=== PATIENT | male | born 1970 | race Caucasian/White ===

== ENCOUNTER 2018-02-18 23:30 | Emergency (ER) | payer OTHER ==
[~2018-02-18 23:30] MED LIST: ATV/1 PO; TEMA15CA4 PO; TRAM-10 PO
[2018-02-18 23:33] VITALS: TEMP 36.7; Ht 182.9 cm
[2018-02-18] MEDS ORDERED: SODIUM CHLORIDE 0.9% 1000ML 1,000 ML IV STA (23:48)
[2018-02-18] MEDS ORDERED: ONDANSETRON INJ 2 MG/ML 2 ML VIAL IV STA (23:48)
[2018-02-18] MEDS ORDERED: CITA20TA4 PO (23:54)
[2018-02-18] MEDS ORDERED: OMEP40CA41 PO (23:54)
--- NOTE | 2018-02-19 00:37 | EMERGENCY ROOM VISIT NOTE ---
History Report prepared by Mahnaz: Luis Carlos Irizarry Under the Supervision of: Dr. Maria Alejandra Douglas M.D. First contact with patient: 23:48 Chief Complaint: DIARRHEA Stated Complaint: DIARREHA History of Present Illness The patient is a 48 year old male who presents to the Emergency Room with complaints of persistent general diarrhea for two days. He reports nausea and vomiting. He has a history of cholecystectomy. He denies any other underlying medical problems. He denies any fever or bloody stools. He reports abdominal pain and general weakness. He reports loss of appetite. His last bowel movement was earlier today. He notes that he has been dry heaving for 12 hours. The patient has a history of depression and alcoholism. Mother states the patient has not had anything to drink in over 5 years however he admits he has been drinking beer, up to 6 cans a day, over the last "several weeks." Source of History: patient Onset: two days Position: other (general ) Quality: other (diarrhea) Timing: other (persistent) Associated Symptoms: + nausea, + vomiting, + abdominal pain, + weakness, No fevers Note: Notes dry heaving. Denies any bloody stools. Review of Systems See HPI for pertinent positives & negatives. A total of 10 systems reviewed and were otherwise negative. Past Medical & Surgical Medical Problems: (1) Acquired thrombocytopenia (2) Alcohol poisoning (3) Basal cell carcinoma of nose (4) Cholelithiasis without obstruction (5) closed head injury (6) History of adenomatous polyp of colon (7) Hypotension (8) Open reduction of fracture (9) Pelvic titanium plates (10) Portal hypertension (11) Recurrent falls (12) s/p femur fracture (13) Titanium femurs bilaterally Surgical Problems: (1) Hx of cholecystectomy Family History FH: cancer FH: heart disease Hypertension Stroke MOTHER GRANDMOTHER Social History Smoking Status: Never Smoker Alcohol Use: heavy, other Drug Use: none Marital Status: single Housing Status: lives with family Occupation Status: disabled Current/Historical Medications Scheduled Citalopram Hydrobromide (Citalopram Hydrobromide), 20 MG PO DAILY Omeprazole (Prilosec), 40 MG PO DAILY Scheduled PRN Lorazepam (Ativan), 1 MG PO TID PRN for Anxiety Temazepam (Restoril), 15 MG PO HS PRN for Sleep Tramadol (Ultram), 50-100 MG PO Q6H PRN for Pain Allergies Coded Allergies: Hydrocodone (Verified Allergy, Unknown, rash, 02/18/18) Sulfa Drugs (Verified Allergy, Unknown, swells up and hives, 02/18/18) Physical Exam Vital Signs Date Time Temp Pulse Resp B/P (MAP) Pulse Ox O2 Delivery O2 Flow Rate FiO2 02/19/18 03:04 102 21 96 02/19/18 03:02 133/85 02/19/18 02:34 114 15 97 02/19/18 02:31 135/77 02/19/18 02:04 106 12 98 Room Air 02/19/18 02:01 133/85 02/19/18 01:34 105 16 96 02/19/18 01:29 102 96 02/19/18 01:21 103 02/19/18 00:53 135/86 02/18/18 23:33 36.7 128 20 115/73 95 Room Air Physical Exam Vital signs reviewed. General: Chronically ill-appearing, thin, in no significant distress. Holding emesis bag with clear greenish vomitus HEENT: No scleral icterus, PERRLA, neck supple. Atraumatic. Cardiovascular: Tachycardic rate and regular rhythm, no extra sounds. Pulmonary: Clear to auscultation bilaterally, normal work of breathing. Abdomen: Soft, mild diffuse abdominal tenderness, nondistended, positive bowel sounds. Musculoskeletal: Atraumatic, no peripheral edema. Neurologic: Patient awake alert and oriented x 3 Skin: Warm, dry, no rash Medical Decision & Procedures ER Provider Diagnostic Interpretation: Radiology results as stated below per my review and interpretation: CHEST/ABDOMEN XR: No focal infiltrate. No free air. No obstruction. Laboratory Results 02/19/18 00:35 Red Blood Count 5.28, Mean Corpuscular Volume 82.2, Mean Corpuscular Hemoglobin 28.8, Mean Corpuscular Hemoglobin Concent 35.0, Mean Platelet Volume 9.4, Neutrophils (%) (Auto) 79.7, Lymphocytes (%) (Auto) 15.4, Monocytes (%) (Auto) 4.1, Eosinophils (%) (Auto) 0.2, Basophils (%) (Auto) 0.4, Neutrophils # (Auto) 4.04, Lymphocytes # (Auto) 0.78, Monocytes # (Auto) 0.21, Eosinophils # (Auto) 0.01, Basophils # (Auto) 0.02 02/19/18 00:35 Test 02/19/18 00:35 02/19/18 02:51 02/19/18 04:15 White Blood Count 5.07 K/uL (4.8-10.8) Red Blood Count 5.28 M/uL (4.7-6.1) Hemoglobin 15.2 g/dL (14.0-18.0) Hematocrit 43.4 % (42-52) Mean Corpuscular Volume 82.2 fL (80-100) Mean Corpuscular Hemoglobin 28.8 pg (25-34) Mean Corpuscular Hemoglobin Concent 35.0 g/dl (32-36) Platelet Count 117 K/uL (130-400) Mean Platelet Volume 9.4 fL (7.4-10.4) Neutrophils (%) (Auto) 79.7 % Lymphocytes (%) (Auto) 15.4 % Monocytes (%) (Auto) 4.1 % Eosinophils (%) (Auto) 0.2 % Basophils (%) (Auto) 0.4 % Neutrophils # (Auto) 4.04 K/uL (1.4-6.5) Lymphocytes # (Auto) 0.78 K/uL (1.2-3.4) Monocytes # (Auto) 0.21 K/uL (0.11-0.59) Eosinophils # (Auto) 0.01 K/uL (0-0.5) Basophils # (Auto) 0.02 K/uL (0-0.2) RDW Standard Deviation 39.6 fL (36.4-46.3) RDW Coefficient of Variation 13.2 % (11.5-14.5) Immature Granulocyte % (Auto) 0.2 % Immature Granulocyte # (Auto) 0.01 K/uL (0.00-0.02) Anion Gap 15.0 mmol/L (3-11) Estimated GFR () 117.7 Estimated GFR (Non- 101.6 BUN/Creatinine Ratio 12.5 (10-20) Calcium Level 8.6 mg/dl (8.5-10.1) Magnesium Level 2.0 mg/dl (1.8-2.4) Total Bilirubin 0.9 mg/dl (0.2-1) Direct Bilirubin 0.3 mg/dl (0-0.2) Aspartate Amino Transf (AST/SGOT) 56 U/L (15-37) Alanine Aminotransferase (ALT/SGPT) 48 U/L (12-78) Alkaline Phosphatase 61 U/L (45-117) Total Protein 8.6 gm/dl (6.4-8.2) Albumin 4.4 gm/dl (3.4-5.0) Lipase 169 U/L (73-393) Ethyl Alcohol mg/dL 36.0 mg/dl (0-3) Urine Color YELLOW Urine Appearance CLEAR (CLEAR) Urine pH 7.0 (4.5-7.5) Urine Specific Ovid 1.015 (1.000-1.030) Urine Protein NEG (NEG) Urine Glucose (UA) NEG (NEG) Urine Ketones 1+ (NEG) Urine Occult Blood NEG (NEG) Urine Nitrite NEG (NEG) Urine Bilirubin NEG (NEG) Urine Urobilinogen NEG (NEG) Urine Leukocyte Esterase NEG (NEG) Laboratory results per my review. Medications Administered Medications (Trade) Dose Ordered Sig/Davion Route Start Time Stop Time Status Last Admin Dose Admin Sodium Chloride 1,000 ml @ 999 mls/hr Q1H1M STAT IV 02/18/18 23:48 02/19/18 00:48 DC 02/18/18 00:40 999 MLS/HR Ondansetron HCl (Zofran Inj) 4 mg NOW STAT IV 02/18/18 23:48 02/18/18 23:51 DC 02/19/18 00:43 4 MG Promethazine HCl 12.5 mg/Sodium Chloride 50.5 ml @ 204 mls/hr NOW STAT IV 02/19/18 00:54 02/19/18 01:08 DC 02/19/18 01:22 204 MLS/HR Sodium Chloride 1,000 ml @ 999 mls/hr Q1H1M STAT IV 02/19/18 01:36 02/19/18 02:36 DC 02/19/18 01:59 999 MLS/HR Morphine Sulfate (MoRPHine SULFATE INJ) 4 mg NOW STAT IV 02/19/18 01:54 02/19/18 01:56 DC 02/19/18 02:02 4 MG Promethazine HCl 12.5 mg/Sodium Chloride 50.5 ml @ 204 mls/hr NOW STAT IV 02/19/18 01:54 02/19/18 02:08 DC 02/19/18 03:10 204 MLS/HR Lorazepam (Ativan Inj) 2 mg NOW STAT IV 02/19/18 02:21 02/19/18 02:22 DC 02/19/18 02:29 2 MG Sodium Chloride 1,000 ml @ 250 mls/hr Q4H STAT IV 02/19/18 02:59 02/19/18 06:58 02/19/18 03:15 250 MLS/HR Ondansetron HCl (ZOFRAN ODT 4MG Home Pack) 1 homepack UD ONCE PO 02/19/18 03:45 02/19/18 03:46 DC 02/19/18 04:21 1 HOMEPACK Lorazepam (Ativan Tab) 2 mg NOW STAT SL 02/19/18 03:38 02/19/18 03:40 DC 02/19/18 04:20 2 MG ED Course 2353: Past medical records reviewed. The patient was evaluated in room B12A. A complete history and physical examination was performed. 2348: Ordered Zofran 4 mg IV and Sodium Chloride 1,000 ml @ 999 mls/hr IV 0054: Ordered Prmethazine HCl 12.5 mg/Sodium Chloride 50.5 ml @ 204 mls/hr IV 0136: Ordered Sodium Chloride 1,00 ml @ 999 mls/hr IV 0152: I reassessed the patient at this time. He is hypertensive and tachycardic. 0154: Ordered Promethazine HCl 12.5 mg/Sodium Chloride 50.5 ml @ 204 mls/hr IV and Morphine Sulfate 4 mg IV 0159: Ordered Ativan 1 mg IV 0221: Ordered Ativan 2 mg IV 0259: Ordered Sodium Chloride 1,000 ml @ 250 mls/hr IV 0338: Ordered Ativan 2 mg SL 0343: I reassessed the patient at this time. He is feeling better and resting comfortably. I discussed the results and treatment plan with the patient. I answered all pertaining questions that he had. He expressed understanding and verbalized agreement. The patient will be discharged home. 0345: Ordered Zofran 1 homepack PO Medical Decision Differential diagnosis: Etiologies such as gastroenteritis, food borne illness, infections, appendicitis , diverticulitis, inflammatory bowel disease, obstruction, GI bleed, biliary pathology, as well as others were entertained. This patient was evaluated and appeared to be in no significant distress. IV access was obtained and laboratory work was drawn. Patient was hydrated with normal saline solution. Abdominal x-ray series reveals no evidence of free air or obstruction. There is no infiltrate on chest x-ray. Laboratory work is fairly unrevealing. The patient came in tachycardic and hypertensive. After further questioning, the alcohol abuse history was elicited. Patient states he has been drinking recently. He reports a prescription for Ativan 1 mg 3 times a day however [facility] has prescriptions for 2 mg Ativan tablets 3 times daily. I suspect the patient came down with a viral illness causing the vomiting and diarrhea and now he is likely withdrawing from alcohol and benzodiazepines. Patient has ceased vomiting after IV hydration, IV Zofran, IV Phenergan and 1 dose of IV morphine. Patient did receive IV Ativan and a p.o. dose of Ativan later in the stay for alcohol withdrawal symptoms. Patient's clinical status is much improved. His heart rate and blood pressure have both improved. The patient was strongly advised to avoid alcohol consumption and benzodiazepine intake. He was discharged with a Zofran home pack. Patient was strongly encouraged to follow-up with his psychiatrist, PCP and AA. He was discharged to care of his mother and will continue to take his benzodiazepines as prescribed. Patient will return to the ER for worsening of symptoms or any medical concerns. [place] Drug Monitoring Program Search Results: patient reviewed within database Drug Monitoring Findings: The patient has multiple prescriptions for benzodiazepines by two physicians. He has a significant psychiatric history. Medication Reconcilliation Current Medication List: was personally reviewed by me Blood Pressure Screening Patient's blood pressure: Normal blood pressure Impression Primary Impression: Vomiting and diarrhea Additional Impression: Alcohol withdrawal Scribe Attestation The scribe's documentation has been prepared under my direction and personally reviewed by me in its entirety. I confirm that the note above accurately reflects all work, treatment, procedures, and medical decision making performed by me. Departure Information Dispostion Home / Self-Care Referrals Jose Francisco Luevano MD (PCP) Forms HOME CARE DOCUMENTATION FORM, IMPORTANT VISIT INFORMATION, WORK / SCHOOL INSTRUCTIONS Patient Instructions My [facility] Additional Instructions Diagnosis: Vomiting and diarrhea, alcohol withdrawal Please continue Ativan as prescribed. Do not take Ativan and drink alcohol. Please contact your alcohol recovery sponsor or Alcoholics Anonymous for further support. Zofran 4 mg ODT every 6 hours as needed for nausea. Please drink plenty of water. Continue your Prilosec as prescribed for your stomach. Follow-up with your primary care physician this week for reevaluation. Return to the ER for worsening of symptoms or any medical concerns. Problem Qualifiers
[2018-02-19] MEDS ORDERED: PROMETHAZINE HCL INJ 12.5 MG in SODIUM CHLORIDE 0.9% 50ML 50 ML IV STA ×2 (00:54→01:54)
[2018-02-19 00:55] LABS: BASO % 0.4 %; BASO ABS # 0.02 K/uL (0-0.2); EOS % 0.2 %; EOS ABS # 0.01 K/uL (0-0.5); HEMATOCRIT 43.4 % (42-52); HEMOGLOBIN 15.2 g/dL (14.0-18.0); IG# 0.01 K/uL (0.00-0.02); LYMPH % 15.4 %; LYMPH ABS # 0.78 K/uL (1.2-3.4); MEAN CELL VOLUME 82.2 fL (80-100); MEAN CORPUSCULAR HEMOGLOBIN 28.8 pg (25-34); MEAN PLATELET VOLUME 9.4 fL (7.4-10.4); MONO % 4.1 %; MONO ABS # 0.21 K/uL (0.11-0.59); NEUT % 79.7 %; NEUT ABS # 4.04 K/uL (1.4-6.5); PLATELET COUNT 117 K/uL (130-400); RED CELL DISTRIBUTION WIDTH CV 13.2 % (11.5-14.5); RED CELL DISTRIBUTION WIDTH SD 39.6 fL (36.4-46.3); WHITE BLOOD COUNT 5.07 K/uL (4.8-10.8)
[2018-02-19 01:16] LABS: ALBUMIN 4.4 gm/dl (3.4-5.0); ALT/SGPT 48 U/L (12-78); AST/SGOT 56 U/L (15-37); BLOOD UREA NITROGEN 11 mg/dl (7-18); CALCIUM 8.6 mg/dl (8.5-10.1); CARBON DIOXIDE 24 mmol/L (21-32); CREATININE 0.88 mg/dl (0.60-1.40); GLUCOSE 89 mg/dl (70-99); LIPASE 169 U/L (73-393); POTASSIUM 3.7 mmol/L (3.5-5.1); SODIUM 140 mmol/L (136-145)
[2018-02-19 01:19] LABS: ALKALINE PHOSPHATASE 61 U/L (45-117); TOTAL PROTEIN 8.6 gm/dl (6.4-8.2)
[2018-02-19] MEDS ORDERED: SODIUM CHLORIDE 0.9% 1000ML 1,000 ML IV STA ×2 (01:36→02:59)
[2018-02-19] MEDS ORDERED: MoRPHine SULFATE 4 MG/ML 1 ML CARP\\VIAL IV STA (01:54)
[2018-02-19] MEDS ORDERED: LORAZEPAM 2 MG/ML 1 ML VIAL IV STA ×2 (01:59→02:21)
[2018-02-19] MEDS ORDERED: LORAZEPAM 1 MG TAB SL STA (03:38)
[2018-02-19] MEDS ORDERED: ONDANSETRON HOME PACK 4MG OD TAB PO ONE (03:45)
[2018-02-19 04:39] VITALS: O2SAT 97
[2018-02-19 05:01] VITALS: BP 134/86
[2018-02-19 05:07] VITALS: PULSE 95
--- NOTE | 2018-02-19 07:48 | DIAGNOSTIC IMAGING REPORT ---
ABDOMEN 2VIEW W/PA CHEST RTN CLINICAL HISTORY: 48 years-old Male presenting with abd pain and vomiting, diarrhea. TECHNIQUE: PA view of the chest and supine and upright views of the abdomen were obtained. COMPARISON: 01/18/[address] from 03/19/2015. FINDINGS: Cardiomediastinal silhouette normal. Lungs and pleural spaces clear. Cholecystectomy clips noted. Nonobstructive bowel gas pattern. No gross pneumoperitoneum. Allowing for bowel gas and stool, no calcifications to suggest nephrolithiasis. Bilateral intramedullary nail fixation of the femoral necks and proximal metadiaphyses. Posttraumatic deformities of the femur is noted. Osteopenia may be present. IMPRESSION: 1. No acute cardiopulmonary disease. 2. No radiographic evidence of acute intra-abdominal pathology. Electronically signed by: Jaime Chao M.D. 02/19/2018 7:46 AM Dictated Date/Time: 02/19/2018 7:00 AM
== END 2018-02-19 05:16 | disposition home or self-care (01) ==
LOC: C.EDB 23:31
DX: R11.10 Vomiting, unspecified (principal); R19.7 Diarrhea, unspecified; F10.239 Alcohol dependence with withdrawal, unspecified; F32.9 Major depressive disorder, single episode, unspecified; Z85.828 Personal history of other malignant neoplasm of skin; Z91.81 History of falling; Z90.49 Acquired absence of other specified parts of digestive tract; Z88.2 Allergy status to sulfonamides; Z88.5 Allergy status to narcotic agent; Z82.49 Family history of ischemic heart disease and other diseases of the circulatory system; Z82.3 Family history of stroke; Z79.899 Other long term (current) drug therapy

== ENCOUNTER 2018-03-03 01:04 | Emergency (ER) | payer OTHER ==
[~2018-03-03] VITALS: Ht 182.9 cm; Wt 60.0 kg
[~2018-03-03 01:04] MED LIST changes: +CITA20TA4 PO; +OMEP40CA41 PO
[2018-03-03 01:06] VITALS: TEMP 36.7; Ht 182.9 cm; Wt 60.0 kg
[2018-03-03] MEDS ORDERED: SODIUM CHLORIDE 0.9% 1000ML 1,000 ML IV STA ×2 (01:31→04:01)
[2018-03-03] MEDS ORDERED: ONDANSETRON INJ 2 MG/ML 2 ML VIAL IV STA (01:31)
[2018-03-03 02:02] LABS: BASO % 0.2 %; BASO ABS # 0.01 K/uL (0-0.2); EOS % 0.3 %; EOS ABS # 0.02 K/uL (0-0.5); HEMATOCRIT 41.2 % (42-52); HEMOGLOBIN 14.1 g/dL (14.0-18.0); IG# 0.01 K/uL (0.00-0.02); LYMPH % 7.5 %; LYMPH ABS # 0.43 K/uL (1.2-3.4); MEAN CELL VOLUME 81.9 fL (80-100); MEAN CORPUSCULAR HGB CONC 34.2 g/dl (32-36); MEAN PLATELET VOLUME 8.6 fL (7.4-10.4); MONO % 8.2 %; MONO ABS # 0.47 K/uL (0.11-0.59); NEUT % 83.6 %; NEUT ABS # 4.82 K/uL (1.4-6.5); PLATELET COUNT 150 K/uL (130-400); RED CELL DISTRIBUTION WIDTH CV 13.9 % (11.5-14.5); RED CELL DISTRIBUTION WIDTH SD 41.1 fL (36.4-46.3); WHITE BLOOD COUNT 5.76 K/uL (4.8-10.8)
[2018-03-03 02:18] LABS: ALBUMIN 4.1 gm/dl (3.4-5.0); CALCIUM 8.7 mg/dl (8.5-10.1); CREATININE 0.86 mg/dl (0.60-1.40); POTASSIUM 3.9 mmol/L (3.5-5.1)
[2018-03-03 02:20] LABS: TOTAL PROTEIN 8.7 gm/dl (6.4-8.2)
[2018-03-03] MEDS ORDERED: PROMETHAZINE HCL INJ 25 MG in SODIUM CHLORIDE 0.9% 50ML 50 ML IV STA (02:38)
[2018-03-03] MEDS ORDERED: KETOROLAC TROMETHAMINE 30 MG/ML VIAL IV STA (04:20)
[2018-03-03] MEDS ORDERED: ONDA4TAB10 SL (05:23)
--- NOTE | 2018-03-03 05:24 | EMERGENCY ROOM VISIT NOTE ---
History First contact with patient: 01:11 Chief Complaint: VOMITING Stated Complaint: VOMITING,DIARRHEA Nursing Triage Summary: PT presents with abd pain and vomiting that started [place] morning. PT unable to keep anything down. PT also has diarrhea intermittent. History of Present Illness The patient is a 48 year old male who presents to the Emergency Room with complaints of vomiting and diarrhea which began 7 hours ago when he woke up from a nap. He reports that he woke up and felt very nauseous. He has had multiple episodes of vomiting and diarrhea. He has been dry heaving. He reports that he has an aching pain throughout his abdomen which he believes is due to the vomiting. He reports a history of similar symptoms, but is unsure why. His mother reports that "they are always told it is the flu." The patient reports his overall pain is an 8/10. He has not used any medication for his symptoms. He has not followed up with his PCP regarding this. He has had a prior cholecystectomy. Patient does report a history of alcohol use, and states that his last drink was yesterday. His mother reports that his last drink was actually several days ago. He denies fevers, blood in his stools/ vomit, or chest pain. Review of Systems A complete 10 point review of systems was reviewed with the patient with pertinent positives and negatives as per history of present illness. All else were negative. Past Medical/Surgical History Medical Problems: (1) Acquired thrombocytopenia (2) Alcohol poisoning (3) Basal cell carcinoma of nose (4) Cholelithiasis without obstruction (5) closed head injury (6) History of adenomatous polyp of colon (7) Hypotension (8) Open reduction of fracture (9) Pelvic titanium plates (10) Portal hypertension (11) Recurrent falls (12) s/p femur fracture (13) Titanium femurs bilaterally Surgical Problems: (1) Hx of cholecystectomy Family History FH: cancer FH: heart disease Hypertension Stroke MOTHER GRANDMOTHER Social History Smoking Status: Never Smoker Alcohol Use: heavy, other Drug Use: none Marital Status: single Housing Status: lives with family Occupation Status: disabled Current/Historical Medications Scheduled Citalopram Hydrobromide (Citalopram Hydrobromide), 20 MG PO DAILY Omeprazole (Prilosec), 40 MG PO DAILY Ondasetron Odt (Zofran Odt), 4 MG SL Q6H Scheduled PRN Lorazepam (Ativan), 1 MG PO TID PRN for Anxiety Temazepam (Restoril), 15 MG PO HS PRN for Sleep Tramadol (Ultram), 50-100 MG PO Q6H PRN for Pain Physical Exam Vital Signs Date Time Temp Pulse Resp B/P (MAP) Pulse Ox O2 Delivery O2 Flow Rate FiO2 03/03/18 05:34 98 16 124/70 96 03/03/18 03:55 100 16 130/76 96 Room Air 03/03/18 01:06 36.7 118 20 118/67 96 Room Air Physical Exam VITALS: Vitals are noted on the nurse's note and reviewed by myself. Vital signs stable. GENERAL: This is a 48-year-old male, in no acute distress, nondiaphoretic, well- developed well-nourished. SKIN: The skin was without rashes. EARS: External auditory canals clear, tympanic membranes pearly vazquez without erythema or effusion bilaterally. EYES: Pupils equal round and reactive to light and accommodation. MOUTH: Mucous membranes moist. Tonsils are not enlarged. Pharynx without erythema or exudate. NECK: Supple without nuchal rigidity. No lymphadenopathy. HEART: Regular rate and rhythm without murmurs gallops or rubs. LUNGS: Clear to auscultation bilaterally without wheezes, rales or rhonchi. ABDOMEN: Positive bowel sounds x 4. Soft, nondistended. There is mild diffuse tenderness to palpation. No guarding rebound tenderness. No focal abdominal tenderness. NEURO: Patient was alert and oriented to person place and time. Medical Decision & Procedures Laboratory Results 03/03/18 01:48 Red Blood Count 5.03, Mean Corpuscular Volume 81.9, Mean Corpuscular Hemoglobin 28.0, Mean Corpuscular Hemoglobin Concent 34.2, Mean Platelet Volume 8.6, Neutrophils (%) (Auto) 83.6, Lymphocytes (%) (Auto) 7.5, Monocytes (%) (Auto) 8.2, Eosinophils (%) (Auto) 0.3, Basophils (%) (Auto) 0.2, Neutrophils # (Auto) 4.82, Lymphocytes # (Auto) 0.43, Monocytes # (Auto) 0.47, Eosinophils # (Auto) 0.02, Basophils # (Auto) 0.01 03/03/18 01:48 Test 03/03/18 01:48 White Blood Count 5.76 K/uL (4.8-10.8) Red Blood Count 5.03 M/uL (4.7-6.1) Hemoglobin 14.1 g/dL (14.0-18.0) Hematocrit 41.2 % (42-52) Mean Corpuscular Volume 81.9 fL (80-100) Mean Corpuscular Hemoglobin 28.0 pg (25-34) Mean Corpuscular Hemoglobin Concent 34.2 g/dl (32-36) Platelet Count 150 K/uL (130-400) Mean Platelet Volume 8.6 fL (7.4-10.4) Neutrophils (%) (Auto) 83.6 % Lymphocytes (%) (Auto) 7.5 % Monocytes (%) (Auto) 8.2 % Eosinophils (%) (Auto) 0.3 % Basophils (%) (Auto) 0.2 % Neutrophils # (Auto) 4.82 K/uL (1.4-6.5) Lymphocytes # (Auto) 0.43 K/uL (1.2-3.4) Monocytes # (Auto) 0.47 K/uL (0.11-0.59) Eosinophils # (Auto) 0.02 K/uL (0-0.5) Basophils # (Auto) 0.01 K/uL (0-0.2) RDW Standard Deviation 41.1 fL (36.4-46.3) RDW Coefficient of Variation 13.9 % (11.5-14.5) Immature Granulocyte % (Auto) 0.2 % Immature Granulocyte # (Auto) 0.01 K/uL (0.00-0.02) Anion Gap 9.0 mmol/L (3-11) Est Creatinine Clear Calc Drug Dose 89.1 ml/min Estimated GFR () 118.8 Estimated GFR (Non- 102.5 BUN/Creatinine Ratio 9.7 (10-20) Calcium Level 8.7 mg/dl (8.5-10.1) Total Bilirubin 0.5 mg/dl (0.2-1) Aspartate Amino Transf (AST/SGOT) 39 U/L (15-37) Alanine Aminotransferase (ALT/SGPT) 29 U/L (12-78) Alkaline Phosphatase 74 U/L (45-117) Total Protein 8.7 gm/dl (6.4-8.2) Albumin 4.1 gm/dl (3.4-5.0) Globulin 4.6 gm/dl (2.5-4.0) Albumin/Globulin Ratio 0.9 (0.9-2) Lipase 180 U/L (73-393) Medications Administered Medications (Trade) Dose Ordered Sig/Davion Route Start Time Stop Time Status Last Admin Dose Admin Sodium Chloride 1,000 ml @ 999 mls/hr Q1H1M STAT IV 03/03/18 01:31 03/03/18 02:31 DC 03/03/18 01:50 999 MLS/HR Ondansetron HCl (Zofran Inj) 4 mg NOW STAT IV 03/03/18 01:31 03/03/18 01:32 DC 03/03/18 01:50 4 MG Promethazine HCl 25 mg/Sodium Chloride 51 ml @ 204 mls/hr NOW STAT IV 03/03/18 02:38 03/03/18 02:52 DC 03/03/18 02:56 204 MLS/HR Sodium Chloride 1,000 ml @ 999 mls/hr Q1H1M STAT IV 03/03/18 04:01 03/03/18 05:01 DC 03/03/18 04:25 999 MLS/HR Ketorolac Tromethamine (Toradol Inj) 30 mg NOW STAT IV 03/03/18 04:20 03/03/18 04:21 DC 03/03/18 04:34 30 MG Ondansetron HCl (ZOFRAN ODT 4MG Home Pack) 1 homepack UD ONCE PO 03/03/18 05:30 03/03/18 05:31 DC 03/03/18 05:27 1 HOMEPACK Medical Decision Differential diagnosis includes colitis, gastroenteritis, C. difficile, pancreatitis, alcohol withdrawal, dehydration, electrolyte abnormality, among others. The patient is a 48-year-old male who presents today complaining of vomiting and diarrhea which started a few hours prior to arrival. Labs revealed no leukocytosis, anemia or concerning electrolyte abnormality. Patient does report some abdominal discomfort, but feels this is a soreness due to his vomiting. He was treated with 2 L of normal saline solution, IV Zofran and Phenergan with resolution of his vomiting. He was able to tolerate some ice chips without difficulty. I did review the patient's records. He has been here multiple times for alcohol withdrawal in the past. I did speak with the patient and mother regarding this, as this could be contributing to his symptoms today and they deny that the patient has any issue with alcohol. I discussed the importance of follow-up with a PCP and the mother reports that she has been trying to call but has been unable to get through to the office. I offered to have case management call and make an appointment with them, but the mother declined as she would have to drive him to any appointments and she is unsure when they would schedule it. They were advised to call on Monday to try to arrange follow-up. Patient was given a home pack and prescription of Zofran and advised to keep a bland diet. Based on the patient's presentation and work up, I feel the patient is stable for outpatient treatment. The patient was educated to return to the emergency department for any worsening of their current condition or new/concerning symptoms. He will follow up with primary care. Medication Reconcilliation Current Medication List: was personally reviewed by me Blood Pressure Screening Patient's blood pressure: Normal blood pressure Impression Primary Impression: Vomiting and diarrhea Departure Information Dispostion Home / Self-Care Condition GOOD Prescriptions Ondasetron Odt (ZOFRAN ODT) 4 Mg Tab 4 MG SL Q6H for Nausea, #12 TAB Prov: Aracely Angeles PA-C 03/03/18 Referrals Jose Francisco Luevano MD (PCP) Patient Instructions My [facility] Additional Instructions You have been prescribed Zofran to be used for any nausea or vomiting. Take as prescribed. For pain control, you can use the following [id number] medicines (if >12 yo): - Regular strength (325mg/tab) Tylenol (acetaminophen) 2 tabs every 4-6 hours as needed. Do not exceed 12 tablets in a 24 hour period. Avoid taking more than 4 grams (4000 mg) of Tylenol per day. This includes any other sources of acetaminophen you may take on a regular basis. - Regular strength (200 mg/tab) Advil (ibuprofen) 1-2 tabs every 4-6 hours as needed. Do not exceed a dose of 3200 mg per day. Drink plenty of fluids over the next 48 hours. Keep a very bland diet. Contact your primary care provider on Monday to make a follow-up appointment. Return to the emergency department with worsening pain, vomiting, fevers or other new/concerning symptoms.
[2018-03-03] MEDS ORDERED: ONDANSETRON HOME PACK 4MG OD TAB PO ONE (05:30)
[2018-03-03 05:34] VITALS: BP 124/70; PULSE 98; O2SAT 96
[2018-03-03] MEDS ORDERED: ATV2 PO (08:35)
[2018-03-03] MEDS ORDERED: NRN/100 PO (08:35)
[2018-03-03] MEDS ORDERED: NAPR-1231 PO (08:35)
[2018-03-06] MEDS ORDERED: MULT-1042 PO (10:50)
[2018-03-06] MEDS ORDERED: PANT40TA PO (10:50)
[2018-03-06] MEDS ORDERED: THIA50TA3 PO (10:50)
[2018-03-06] MEDS ORDERED: LCTX PO (10:50)
[2018-03-06] MEDS ORDERED: AMOX875T PO (10:50)
== END 2018-03-03 05:36 | disposition home or self-care (01) ==
LOC: C.EDB 01:05 → C.EDA 05:36
DX: R11.2 Nausea with vomiting, unspecified (principal); R19.7 Diarrhea, unspecified; Z90.49 Acquired absence of other specified parts of digestive tract; Z85.828 Personal history of other malignant neoplasm of skin; Z86.010 Personal history of colon polyps; K76.6 Portal hypertension; Z80.9 Family history of malignant neoplasm, unspecified; Z82.49 Family history of ischemic heart disease and other diseases of the circulatory system; Z82.3 Family history of stroke; Z79.899 Other long term (current) drug therapy

== ENCOUNTER 2018-03-03 08:01 | Inpatient (IN) | payer OTHER ==
[~2018-03-03] VITALS: Ht 182.9 cm; Wt 58.0 kg
[~2018-03-03 08:01] MED LIST changes: +ONDA4TAB10 SL
[2018-03-03] MEDS ORDERED: SODIUM CHLORIDE 0.9% 1000ML 1,000 ML IV STA (08:27)
[2018-03-03] MEDS ORDERED: PROMETHAZINE HCL INJ 25 MG/ML 1 ML VIAL IV STA (08:27)
[2018-03-03] MEDS: ACETAMINOPHEN IV 100 ML IV ONE ×2 (08:30→08:52)
[2018-03-03] MEDS ORDERED: NRN/100 PO (08:35)
[2018-03-03] MEDS ORDERED: NAPR-1231 PO (08:35)
[2018-03-03] MEDS ORDERED: ATV2 PO (08:35)
[2018-03-03 08:43] LABS: BASO % 0.2 %; BASO ABS # 0.01 K/uL (0-0.2); EOS % 0.2 %; EOS ABS # 0.01 K/uL (0-0.5); HEMOGLOBIN 13.2 g/dL (14.0-18.0); IG# 0.01 K/uL (0.00-0.02); LYMPH % 9.1 %; LYMPH ABS # 0.37 K/uL (1.2-3.4); MEAN CELL VOLUME 81.9 fL (80-100); MEAN CORPUSCULAR HEMOGLOBIN 28.4 pg (25-34); MEAN CORPUSCULAR HGB CONC 34.7 g/dl (32-36); MEAN PLATELET VOLUME 9.2 fL (7.4-10.4); MONO % 7.6 %; MONO ABS # 0.31 K/uL (0.11-0.59); NEUT % 82.7 %; NEUT ABS # 3.37 K/uL (1.4-6.5); PLATELET COUNT 142 K/uL (130-400); RED CELL DISTRIBUTION WIDTH CV 13.9 % (11.5-14.5); RED CELL DISTRIBUTION WIDTH SD 41.4 fL (36.4-46.3); WHITE BLOOD COUNT 4.08 K/uL (4.8-10.8)
[2018-03-03] MEDS ORDERED: OPTIRAY 320 IV PRN (08:45)
[2018-03-03 09:14] LABS: ALBUMIN 3.6 gm/dl (3.4-5.0); CALCIUM 7.8 mg/dl (8.5-10.1); CREATININE 0.87 mg/dl (0.60-1.40); POTASSIUM 3.9 mmol/L (3.5-5.1); TOTAL PROTEIN 8.2 gm/dl (6.4-8.2)
--- NOTE | 2018-03-03 10:20 | DIAGNOSTIC IMAGING REPORT ---
ABDOMEN AND PELVIS CT WITH IV CONTRAST CT DOSE: 266.52 mGy.cm HISTORY: Acute nausea, vomiting and diarrhea. Nause, vomiting and diarrhea with abd pain TECHNIQUE: Multiaxial CT images of the abdomen and pelvis were performed following the use of intravenous contrast. A dose lowering technique was utilized adhering to the principles of ALARA. COMPARISON STUDY: CT abdomen and pelvis 03/19/2015 FINDINGS: Partially imaged 8 x 7 mm groundglass nodule of the medial basal segment right lower lobe, image 1 of series 3. There are additional ill-defined bronchovascular distribution of groundglass opacities about the basal left lower lobe measuring up to 4 mm. No pneumatosis or pneumoperitoneum. Imaged inferior cardiac chambers are unremarkable. Prior cholecystectomy. Decreased attenuation of the liver suggests hepatic steatosis. Spleen is mildly enlarged, 14 cm in length. Pancreas and adrenal glands are within normal limits. Kidneys, ureters and bladder are unremarkable. Prostate appears to be within the upper limits of normal in size. Mild atherosclerosis of the aorta without aneurysm. No bulky adenopathy. Patent IVC. No bowel obstruction or focal bowel wall thickening. No mesenteric inflammatory changes or ascites. The appendix appears normal. Soft tissues are unremarkable. Bones appear intact. Intratrochanteric nails with medullary rods of the bilateral femurs. Moderate Schmorl's node involves superior endplate L4. IMPRESSION: 1. No acute intra-abdominal or intrapelvic abnormality identified. 2. No bowel obstruction or focal bowel wall thickening. Normal appendix. 3. Partially imaged groundglass nodules of the bilateral lung bases measuring up to 8 x 7 mm on the right suggest infectious or inflammatory pneumonitis. 4. Prior cholecystectomy. 5. Mild splenomegaly. Please refer to below summary of Fleischner criteria recommendations for follow-up of incidental CT nodules (Gail Ortiz, Guidelines for management of small pulmonary nodules detected on CT scans: A statement from the Fleischner Society, Radiology 237: [id number].) Note: newly detected indeterminate nodule in persons 35 years of age or older. * Low risk patients: minimal or absent history of smoking and/or other known risk factors * high risk patients: history of smoking or of other known risk factors (e.g. first degree relative with lung cancer, or exposure to asbestos, radon, uranium) * if a nodule up to 8 mm is partly solid or is ground glass further follow-up is required after 24 months to exclude possible slow growing adenocarcinoma (DOREEN) SUBSOLID NODULES Multiple subsolid nodules * nodule size <6 mm - follow-up CT at 3-6 months, consider further follow-up at 2 and 4 years if stable * nodule size >=6 mm - follow-up CT at 3-6 months, subsequent management based on the most suspicious nodule(s) The above report was generated using voice recognition software. It may contain grammatical, syntax or spelling errors. Electronically signed by: Florencio Evangelista M.D. 03/03/2018 10:19 AM Dictated Date/Time: 03/03/2018 10:10 AM
[2018-03-03] MEDS ORDERED: MoRPHine SULFATE 4 MG/ML 1 ML CARP\\VIAL IV STA (10:24)
[2018-03-03] MEDS ORDERED: LORAZEPAM 1 MG TAB PO PRN (11:45)
[2018-03-03] MEDS ORDERED: ALUMINUM/MAGNESIUM/SIMETH (MAALOX MAX) 30 ML UDC PO PRN (11:45)
[2018-03-03] MEDS ORDERED: ONDANSETRON INJ 2 MG/ML 2 ML VIAL IV PRN (11:45)
[2018-03-03] MEDS ORDERED: POLYETHYLENE (MIRALAX) 17 GM PACK PO PRN (11:45)
[2018-03-03] MEDS ORDERED: NITROGLYCERIN 0.4 MG SL PER TAB CHARGE SL PRN (11:45)
[2018-03-03] MEDS ORDERED: ACETAMINOPHEN 325 MG TAB PO PRN (11:45)
[2018-03-03] MEDS ORDERED: TEMAZEPAM 15 MG CAP PO PRN (11:45)
[2018-03-03 12:10] VITALS: O2SAT 97; BMI 17.9
[2018-03-03] MEDS ORDERED: PANTOprazole SOD 40 MG TAB PO STA (12:11)
--- NOTE | 2018-03-03 12:19 | DIAGNOSTIC IMAGING REPORT ---
(CHEST) THORAX WITHOUT CT DOSE: 303.85 mGy.cm CLINICAL HISTORY: 48 years-old Male with LUNG NODULES. Sepsis with groundglass nodules TECHNIQUE: Multiaxial CT images of the chest were performed without contrast. A dose lowering technique was utilized adhering to the principles of ALARA. COMPARISON: CT abdomen and pelvis of same day, CT chest 06/26/2013. FINDINGS: No dominant thyroid nodule. No pathologic adenopathy. Heart appears normal. No thoracic aortic aneurysm. There is no pneumothorax or pleural effusion. 4 mm pleural-based solid nodule of the right upper lobe. Mild dependent subsegmental bibasilar atelectasis. Groundglass nodules of the bilateral lung bases, left greater than right are seen measuring up to 8 mm within the medial basal segment right lower lobe, image 213 series 4. Minimal bronchovascular distribution of nodular consolidative opacities are also noted within the left lower lobe. Central airways are patent. Retained contrast within the collecting systems bilaterally. Prior cholecystectomy. Bilateral gynecomastia. Bones appear intact. IMPRESSION: 1. Groundglass nodules of the bilateral lung bases left greater than right with associated bronchovascular distribution of nodular consolidative opacities within the basal left lower lobe suggest bronchopneumonia or aspiration pneumonitis. Three-month follow-up CT recommended to assess stability of the 8 mm medial basal segment right lower lobe groundglass nodule. 2. No pleural effusion or pathologic adenopathy. 3. Prior cholecystectomy. Please refer to below summary of Fleischner criteria recommendations for follow-up of incidental CT nodules (Gail Ortiz, Guidelines for management of small pulmonary nodules detected on CT scans: A statement from the Fleischner Society, Radiology 237: [phone].) Note: newly detected indeterminate nodule in persons 35 years of age or older. * Low risk patients: minimal or absent history of smoking and/or other known risk factors * high risk patients: history of smoking or of other known risk factors (e.g. first degree relative with lung cancer, or exposure to asbestos, radon, uranium) * if a nodule up to 8 mm is partly solid or is ground glass further follow-up is required after 24 months to exclude possible slow growing adenocarcinoma (DOREEN) SUBSOLID NODULES Multiple subsolid nodules * nodule size <6 mm - follow-up CT at 3-6 months, consider further follow-up at 2 and 4 years if stable * nodule size >=6 mm - follow-up CT at 3-6 months, subsequent management based on the most suspicious nodule(s) The above report was generated using voice recognition software. It may contain grammatical, syntax or spelling errors. Electronically signed by: Florencio Evangelista M.D. 03/03/2018 12:18 PM Dictated Date/Time: 03/03/2018 12:10 PM
[2018-03-03] MEDS ORDERED: MULTI-VITAMIN INFUSION INJ 10 ML, THIAMINE HCL INJ 100 MG, FoLIC ACID INJ 1 MG in SODIU... IV ONE (13:30)
[2018-03-03] MEDS: LORAZEPAM 2 MG TAB PO SCH ×2 (13:52→19:56)
[2018-03-03] MEDS: CITALOPRAM 20 MG TAB PO SCH (13:53)
--- NOTE | 2018-03-03 13:53 | EMERGENCY ROOM VISIT NOTE ---
ED Visit Note First contact with patient: 08:12 Chief Complaint: Abdominal pain, nausea, vomiting and diarrhea. History of Present Illness: Mr. Perla is a 48 year-old white male who is brought into the ED via wheelchair complaining of fuse abdominal pain and nausea /vomiting/diarrhea.. Historically patient reports thrombocytopenia, alcohol abuse and is status post cholecystectomy. Patient has had similar symptoms in the past with 1 of the recent episodes on February 19. He was treated in the emergency department and discharged to home with encouragement to follow-up with his primary care provider. He reports he made an appointment was not feeling well so he canceled that appointment and did not reschedule. She was seen in this emergency department earlier today, approximately 3-4 hours ago for nausea, vomiting and diarrhea. During his stay his CBC, BMP and lipase were normal. He was treated aggressively with fluids, antinausea medication and Toradol. He reports he was feeling better on discharge. When he arrived at home his nausea increased and he took another Zofran tablet but he had a couple episodes of vomiting and he also reported he had one more episode of diarrhea which is exacerbated his pain. Patient reports he is having diffuse abdominal pain. He describes this as an achy and cramping sensation. Additionally he reports because of all the retching because of his vomiting he is having thoracic to upper back pain. He rates his overall discomfort 8/10. His pain is nonradiating. He has not identified any alleviating factors related to the pain. Associated with his pain he is still nauseated and is still having diarrhea. He denies fevers, chills, sweats, skin eruptions, skin color changes, upper respiratory tract symptoms, shortness of breath, chest pain, rectal bleeding, black/tarry stools, urinary symptoms, hematuria. Review of Systems: As noted above in history of present illness. All body systems were reviewed and found to be negative as noted above. Past Medical History: As previously noted, basal cell carcinoma on the nose, colon polyps, pelvic fracture, fever fracture. Current Medications: Ultram, Ativan, Restoril, Prilosec, citalopram. Allergies to Medications: Hydrocodone, sulfa. Social History: Patient is not employed; he feels safe in his home environment; he denies tobacco use and admits to alcohol use. Physical Examination: Vital Signs: Date Time Temp Pulse Resp B/P (MAP) Pulse Ox O2 Delivery O2 Flow Rate FiO2 03/03/18 12:10 97 Room Air 03/03/18 11:10 83 18 140/84 97 Room Air 03/03/18 08:49 95 03/03/18 08:06 36.6 99 16 130/78 96 Room Air GENERAL: 48-year-old female in mild to moderate distress due to pain, chronically ill-appearing, afebrile and hemodynamically stable. NEUROLOGICAL: Awake, alert and oriented to person, place and time. Answering questions appropriately and following commands. Normal gait. Good hand eye coordination. SKIN: Warm, dry and pink. No soft tissue eruptions or trauma noted. HEENT: Atraumatic and normocephalic. PERRLA. Sclera white and conjunctiva pink. Oral cavity moist and pink. Pharynx is nonerythematous or edematous. Speech normal. No lymphadenopathy. Trachea midline. No jugular venous distention. BACK: No tenderness over the bony spine. Right sided CVA tenderness. THORAX: Lungs sounds are clear to auscultation and equal bilaterally with symmetrical chest wall. No wheezing, rales or rhonchi. No crepitus, tenderness , subcutaneous air or deformities noted. HEART: Regular rate and rhythm. No gallops, rubs or murmurs are appreciated. ABDOMEN: Flat and soft with diffuse tenderness throughout the abdomen. Positive bowel sounds in all quadrants. No guarding, rigidity or organomegaly. EXTREMITIES: Moves all extremities well on command and with purpose. All distal neurovascular statuses are intact and equal bilaterally. ED Course: Patient is assessed as noted above. Patient's medication list was reviewed. Laboratory Testing: Test 03/03/18 08:20 03/03/18 09:36 Range/Units White Blood Count 4.08 4.8-10.8 K/uL Red Blood Count 4.64 4.7-6.1 M/uL Hemoglobin 13.2 14.0-18.0 g/dL Hematocrit 38.0 42-52 % Mean Corpuscular Volume 81.9 80-100 fL Mean Corpuscular Hemoglobin 28.4 25-34 pg Mean Corpuscular Hemoglobin Concent 34.7 32-36 g/dl Platelet Count 142 130-400 K/uL Mean Platelet Volume 9.2 7.4-10.4 fL Neutrophils (%) (Auto) 82.7 % Lymphocytes (%) (Auto) 9.1 % Monocytes (%) (Auto) 7.6 % Eosinophils (%) (Auto) 0.2 % Basophils (%) (Auto) 0.2 % Neutrophils # (Auto) 3.37 1.4-6.5 K/uL Lymphocytes # (Auto) 0.37 1.2-3.4 K/uL Monocytes # (Auto) 0.31 0.11-0.59 K/uL Eosinophils # (Auto) 0.01 0-0.5 K/uL Basophils # (Auto) 0.01 0-0.2 K/uL RDW Standard Deviation 41.4 36.4-46.3 fL RDW Coefficient of Variation 13.9 11.5-14.5 % Immature Granulocyte % (Auto) 0.2 % Immature Granulocyte # (Auto) 0.01 0.00-0.02 K/uL Sodium Level 138 136-145 mmol/L Potassium Level 3.9 3.5-5.1 mmol/L Chloride Level 102 98-107 mmol/L Carbon Dioxide Level 26 21-32 mmol/L Anion Gap 10.0 3-11 mmol/L Blood Urea Nitrogen 9 7-18 mg/dl Creatinine 0.87 0.60-1.40 mg/dl Est Creatinine Clear Calc Drug Dose 88.1 ml/min Estimated GFR () 118.3 Estimated GFR (Non- 102.1 BUN/Creatinine Ratio 10.4 10-20 Random Glucose 98 70-99 mg/dl Calcium Level 7.8 8.5-10.1 mg/dl Total Bilirubin 0.6 0.2-1 mg/dl Direct Bilirubin 0-0.2 mg/dl Aspartate Amino Transf (AST/SGOT) 40 15-37 U/L Alanine Aminotransferase (ALT/SGPT) 30 12-78 U/L Alkaline Phosphatase 66 45-117 U/L Total Protein 8.2 6.4-8.2 gm/dl Albumin 3.6 3.4-5.0 gm/dl Lipase 175 73-393 U/L Chemistry Specimen Hemolysis Ethyl Alcohol mg/dL < 3.0 0-3 mg/dl IV Contrast Abdominal/Pelvic CT: Was reviewed by myself and read by the radiologist and shows no acute intra-abdominal or intrapelvic abnormalities, no bowel obstruction, focal bowel wall thickening. Normal-appearing appendix. Groundglass nodules noted in the bilateral lung base with a l largest measuring 8 x 7 cm suggestive of a infection or inflammatory pneumo Werner. Prior cholecystectomy. Mild splenomegaly. Patient was hydrated with normal saline and he initially received 1 g of acetaminophen IV and 25 mg of promethazine IV for his symptoms. On reevaluation patient reports his pain was worse and relieved no discomfort with the acetaminophen and was given 4 mg of morphine IV for pain. Patient was reassessed multiple times during her stay in the emergency department. Patient's case was reviewed with Dr. Martinez; we agreed on diagnostic approach, treatment, disposition and plan. Patient's case was reviewed with case management and Dr. Barreto, hospitalist, for medical observation/admission. Patient was educated about today's findings. Clinical Impression: Diffuse abdominal pain. Nausea, vomiting and diarrhea. Decision-Making: Initially my differential diagnosis I considered gastroenteritis, colitis, pancreatitis, hepatitis, gastritis and other causes. Disposition and Plan: Patient be brought in the hospital for observation/ admission by the hospitalist; please see his notes and orders for final disposition and plan.
[2018-03-03] MEDS ORDERED: GABAPENTIN 600 MG TAB PO ONE (14:00)
--- NOTE | 2018-03-03 14:02 | HISTORY & PHYSICAL EXAMINATION ---
DATE OF ADMISSION: 03/03/2018 CHIEF COMPLAINT: Nausea, vomiting, abdominal pain, and diarrhea. HISTORY OF PRESENT ILLNESS: A 48-year-old male with past medical history significant for alcoholism, pancreatitis, history of basal cell carcinoma, history of depression with anxiety, osteoporosis, history of alcoholic liver cirrhosis, splenomegaly, history of cholecystectomy, presents with nausea, vomiting, diarrhea, and abdominal pain since last couple of days. The patient was in the ER yesterday with nausea, vomiting, diarrhea and symptomatically improved and workup was negative and discharged home and he was also in the ER on 02/18/2018 for same problem and supposed to follow up with family doctor, but did not follow. Yesterday from Er he was discharged on Zofran, but after going home, again he was having several episodes of vomiting and several episodes of diarrhea and abdominal pain, so this prompted him to come to the ER. The patient says he has about 3-4 episodes of diarrhea, nausea, vomiting and was not able to eat much since last . Denies any fever, chills. No headaches. No blurred vision. No earache. No runny nose. Has a sore throat from vomiting. No difficulty swallowing. No shortness of breath, no cough, no fever, no chills. Has some lower chest pain and abdominal pain, he states mostly from the vomiting. Denies any blood in the stools, no black stools, no blood in the urine. Normal bladder movements. No swelling in the legs. Currently, resting comfortable and hemodynamically stable. The patient also has history of alcoholism and states since last 5 years, he stopped drinking after he was detoxed in the hospital. He lives with his mother and as per mother he started drinking again from last 6 weeks when he was told that he is to have his tooth extracted and he worried about the procedure and started drinking again; drinking about 6 packs a day, but he states he did not drink the last couple of days because of his ongoing symptoms. ALLERGIES: HYDROCODONE, ACETAMINOPHEN, SULFA ANTIBIOTICS. PAST MEDICAL HISTORY: As mentioned above. PAST SURGICAL HISTORY: Colonoscopy, EGD with biopsies, cholecystectomy, left femur surgery, right femur surgery. MEDICATIONS: The patient is on vitamin D 2000 units p.o. daily, gabapentin 100 mg p.o. t.i.d., Ativan 2 mg p.o. t.i.d., Remeron 50 mg p.o. daily, omeprazole 40 mg p.o. daily, Restoril 15 mg p.o. at bedtime, citalopram 20 mg p.o. daily, naproxen 500 mg p.o. b.i.d., Zantac 150 mg p.o. b.i.d., tramadol 50 mg every 6 hours p.r.n. FAMILY HISTORY: Significant for mother is healthy and alive, mother has hypertension. SOCIAL HISTORY: No smoking history. Lives with his mother. Stopped drinking around 2012. Prior to that, he drank 6 pack a day for 20 years and again restarted drinking about 6 weeks back about 6 pack a day. No drug use. REVIEW OF SYMPTOMS: As per HPI. Rest of the symptoms are negative. PHYSICAL EXAMINATION: GENERAL: The patient is of moderately build, not in distress. VITAL SIGNS: Temperature 36.6, pulse 93, respiratory rate 18, blood pressure 140/84, oxygen 97% on room air. HEENT: No pallor, no icterus. Pupils equal, round, and react to light. NECK: No JVD, no neck masses, no carotid bruits. CARDIOVASCULAR: S1, S2 heard, regular rate and rhythm, no murmur, no gallop. RESPIRATORY SYSTEM: Clear to auscultation bilaterally. No wheezing, no crackles, no accessory muscle use. ABDOMEN: Soft, bowel sounds present. Some mild diffuse discomfort. No guarding, no rigidity, no distention. CENTRAL NERVOUS SYSTEM: Cranial nerves II-XII grossly intact. Nonfocal. EXTREMITIES: No edema, no erythema. LABS: WBC 4.08, hemoglobin 13.5, hematocrit 38, platelets 142. Sodium 138, potassium 3.9, chloride 102, bicarb 26, BUN 9, creatinine 0.8, serum glucose 98, calcium 7.8, total bilirubin 0.6, AST 40, ALT 30, alkaline phosphatase 66, lipase 175. Ethyl alcohol less than 3. CT of the abdomen and pelvis shows no acute intraabdominal or intrapelvic abnormality identified. No bowel obstruction or focal bowel wall thickening, normal appendix. The pancreas and adrenal glands are within normal limits, mildly enlarged skin within 14 cm length; prior cholecystectomy. 8 mm nodes noted to the bilateral lung bases. ASSESSMENT AND PLAN: This 48-year-old male presents with nausea, vomiting, diarrhea and abdominal discomfort. 1. Nausea, vomiting, diarrhea, and abdominal discomfort, most likely viral gastroenteritis. We will check stool for Clostridium difficile. We will place on clear liquid diet, IV fluids, monitor in the hospital. 2. Alcoholism. The patient was alcoholic, history of alcoholism in the past and stopped drinking about 5 years ago but restarted about 6 weeks back because he was worried about dental extractions, drinking about 6 packs beer per day. Did not drink for last 2 days because of his ongoing symptoms. We will place him on gabapentin, alcohol withdrawal protocol with IV Ativan p.r.n. banana bag. Monitor on the tele floor. 3. History of alcoholic liver cirrhosis, seems stable. 4. Depression, anxiety. Continue his home medications. 5. History of gallstone pancreatitis, status post cholecystectomy, currently lipase is normal. CAT scan was unremarkable. 6. History of lung nodules on the CT of abdomen and pelvis Will follow CT of the chest. 7. Deep vein thrombosis prophylaxis, SCDs and heparin subQ. DISPOSITION: Admit to tele floor. Expect to discharge home and follow up with family doctor; level 1 full code. MTDD
[2018-03-03 14:42] LABS: INR 1.1 (0.9-1.1)
[2018-03-03 15:23] VITALS: BP 119/72; PULSE 84; TEMP 36.6; O2SAT 97
[2018-03-03 15:33] VITALS: Ht 182.9 cm; Wt 58.0 kg
[2018-03-03] MEDS: D5NSS + 20MEQ KCL 1,000 ML IV SCH (15:40)
[2018-03-03] MEDS: TRAMADOL HCL 50 MG TAB PO PRN (15:41)
[2018-03-03 19:35] VITALS: BP 121/81; PULSE 87; TEMP 36.7; O2SAT 97
[2018-03-03] MEDS: GABAPENTIN 600MG Q6H DOSE PO SCH (19:55)
[2018-03-03] MEDS: PANTOprazole SOD 40 MG TAB PO SCH (19:56)
[2018-03-03] MEDS: HEPARIN SOD 5000 UNIT/0.5 ML CARP SQ SCH (20:00)
[2018-03-03] MEDS: MoRPHine SULFATE 4 MG/ML 1 ML CARP\\VIAL IV PRN (20:01)
[2018-03-04] VITALS (9 sets, daily range): BP systolic 90–119; BP diastolic 67–80; PULSE 80–90; TEMP 36.4–36.6; O2SAT 95–97
[2018-03-04] MEDS: D5NSS + 20MEQ KCL 1,000 ML IV SCH ×3 (01:40→20:24)
[2018-03-04] MEDS: MoRPHine SULFATE 4 MG/ML 1 ML CARP\\VIAL IV PRN (01:41)
[2018-03-04] MEDS: GABAPENTIN 600MG Q6H DOSE PO SCH (02:12)
[2018-03-04 06:01] LABS: BASO % 0.5 %; BASO ABS # 0.01 K/uL (0-0.2); EOS ABS # 0.04 K/uL (0-0.5); HEMATOCRIT 37.1 % (42-52); HEMOGLOBIN 12.1 g/dL (14.0-18.0); LYMPH % 36.3 %; LYMPH ABS # 0.74 K/uL (1.2-3.4); MEAN CELL VOLUME 84.5 fL (80-100); MEAN CORPUSCULAR HEMOGLOBIN 27.6 pg (25-34); MEAN CORPUSCULAR HGB CONC 32.6 g/dl (32-36); MEAN PLATELET VOLUME 9.1 fL (7.4-10.4); MONO % 8.8 %; MONO ABS # 0.18 K/uL (0.11-0.59); NEUT % 52.4 %; NEUT ABS # 1.07 K/uL (1.4-6.5); PLATELET COUNT 110 K/uL (130-400); RED CELL DISTRIBUTION WIDTH CV 14.1 % (11.5-14.5); RED CELL DISTRIBUTION WIDTH SD 43.6 fL (36.4-46.3); WHITE BLOOD COUNT 2.04 K/uL (4.8-10.8)
[2018-03-04 06:33] LABS: CALCIUM 7.4 mg/dl (8.5-10.1); CREATININE 0.93 mg/dl (0.60-1.40); POTASSIUM 3.2 mmol/L (3.5-5.1)
[2018-03-04] MEDS ORDERED: MAGNESIUM SULFATE 1GM / D5W 100 ML IV ONE (07:15)
[2018-03-04] MEDS ORDERED: POTASSIUM CHLORIDE 20 MEQ TABCR PO ONE (07:15)
[2018-03-04] MEDS: TRAMADOL HCL 50 MG TAB PO PRN (09:09)
[2018-03-04] MEDS: LORAZEPAM 2 MG TAB PO SCH ×3 (09:09→20:21)
[2018-03-04] MEDS: GABAPENTIN 600MG Q8H DOSE PO SCH ×2 (09:10→20:21)
[2018-03-04] MEDS: CITALOPRAM 20 MG TAB PO SCH (09:10)
[2018-03-04] MEDS: PANTOprazole SOD 40 MG TAB PO SCH ×2 (09:11→20:22)
[2018-03-04] MEDS: MULTI-VITAMIN INFUSION INJ 10 ML, THIAMINE HCL INJ 100 MG, FoLIC ACID INJ 1 MG in SODIU... IV SCH (09:12)
[2018-03-04] MEDS: HEPARIN SOD 5000 UNIT/0.5 ML CARP SQ SCH ×2 (09:12→20:23)
[2018-03-04] MEDS: AMPICILLIN/SULBACTAM SOD INJ 1,500 MG in SODIUM CHLORIDE 0.9% 100ML 100 ML IV SCH ×3 (09:32→20:20)
--- NOTE | 2018-03-04 17:01 | Progress Note ---
Internal Med Progress Note Date of Service: March 04, 2018. Provider Documentation: SUBJECTIVE: nausea, vomiting and diarrhea resolved says still has some abdominal pain mostly from his vomiting lies to eat solid food afebrile no sob OBJECTIVE: Vital Signs-as noted below Exam: General-alert and oriented. Not in distress ENT-Normal hearing Neck-no neck masses Lungs-cta b/l no wheezing no crackles Heart-s1 and s2 heard regular rate and rhythm no murmurs Abdomen-soft bowel sounds present non tender no distension Extremities-no edema no erythema Neuro-alert and awake 'moves extremities Lab data as noted below. ASSESSMENT & PLAN: This 48-year-old male presents with nausea, vomiting, diarrhea and abdominal discomfort. 1. Nausea, vomiting, diarrhea, and abdominal discomfort, most likely viral gastroenteritis. symptoms improved since hospitalized continue to monitor. diet advanced. 2. Leukopenia most;y from viral syndrome will monitor 3.Bibasilar ground glass Lung nodules aspiration pneumonitis/ started on Unasyn repeat ct chest in 3months 4. Alcoholism. The patient was alcoholic, history of alcoholism in the past and stopped drinking about 5 years ago but restarted about 6 weeks back because he was worried about dental extractions, drinking about 6 packs beer per day. Did not drink for last 2 days prio to admission because of his ongoing symptoms. We will place him on gabapentin, alcohol withdrawal protocol with IV Ativan p.r.n. banana bag. Monitor on the tele floor. seems stable. 5. History of alcoholic liver cirrhosis, seems stable. 6. Depression, anxiety. Continue his home medications. 7. History of gallstone pancreatitis, status post cholecystectomy, currently lipase is normal. CAT scan was unremarkable. 8. History of lung nodules on the CT of abdomen and pelvis Will follow CT of the chest. 9. Hypokalemia will replace. 10. Deep vein thrombosis prophylaxis, SCDs and heparin subQ. DISPOSITION to be determined possible d/c in 1-2 days Vital Signs: Date Time Temp Pulse Resp B/P (MAP) Pulse Ox O2 Delivery O2 Flow Rate FiO2 03/04/18 16:08 96 Room Air 03/04/18 15:49 36.4 80 16 90/67 (75) 96 Room Air 03/04/18 12:19 97 Room Air 03/04/18 10:55 36.6 86 20 105/76 (86) 97 Room Air 03/04/18 08:18 Room Air 03/04/18 07:07 36.5 90 20 108/75 (86) 97 Room Air 03/04/18 04:00 Room Air 03/04/18 03:33 36.6 88 18 107/80 (89) 95 Room Air 03/04/18 00:31 36.4 87 16 99/74 (82) 97 Room Air 03/04/18 00:00 Room Air 03/03/18 20:00 Room Air 03/03/18 19:35 36.7 87 18 121/81 (94) 97 Room Air Lab Results: Results Past 24 Hours Test 03/04/18 05:31 03/04/18 07:10 Range/Units White Blood Count 2.04 4.8-10.8 K/uL Red Blood Count 4.39 4.7-6.1 M/uL Hemoglobin 12.1 14.0-18.0 g/dL Hematocrit 37.1 42-52 % Mean Corpuscular Volume 84.5 80-100 fL Mean Corpuscular Hemoglobin 27.6 25-34 pg Mean Corpuscular Hemoglobin Concent 32.6 32-36 g/dl Platelet Count 110 130-400 K/uL Mean Platelet Volume 9.1 7.4-10.4 fL Neutrophils (%) (Auto) 52.4 % Lymphocytes (%) (Auto) 36.3 % Monocytes (%) (Auto) 8.8 % Eosinophils (%) (Auto) 2.0 % Basophils (%) (Auto) 0.5 % Neutrophils # (Auto) 1.07 1.4-6.5 K/uL Lymphocytes # (Auto) 0.74 1.2-3.4 K/uL Monocytes # (Auto) 0.18 0.11-0.59 K/uL Eosinophils # (Auto) 0.04 0-0.5 K/uL Basophils # (Auto) 0.01 0-0.2 K/uL RDW Standard Deviation 43.6 36.4-46.3 fL RDW Coefficient of Variation 14.1 11.5-14.5 % Immature Granulocyte % (Auto) 0.0 % Immature Granulocyte # (Auto) 0.00 0.00-0.02 K/uL Sodium Level 138 136-145 mmol/L Potassium Level 3.2 3.5-5.1 mmol/L Chloride Level 103 98-107 mmol/L Carbon Dioxide Level 30 21-32 mmol/L Anion Gap 5.0 3-11 mmol/L Blood Urea Nitrogen 4 7-18 mg/dl Creatinine 0.93 0.60-1.40 mg/dl Est Creatinine Clear Calc Drug Dose 82.7 ml/min Estimated GFR () 112.1 Estimated GFR (Non- 96.7 BUN/Creatinine Ratio 3.8 10-20 Random Glucose 129 70-99 mg/dl Calcium Level 7.4 8.5-10.1 mg/dl Magnesium Level 1.7 1.8-2.4 mg/dl Folate 7.32 >5.38 ng/mL Bedside Glucose 89 70-99 mg/dl
[2018-03-05] VITALS (10 sets, daily range): BP systolic 102–127; BP diastolic 67–84; PULSE 69–98; TEMP 36.4–37; O2SAT 96–98
[2018-03-05] MEDS: TRAMADOL HCL 50 MG TAB PO PRN (00:21)
[2018-03-05] MEDS: AMPICILLIN/SULBACTAM SOD INJ 1,500 MG in SODIUM CHLORIDE 0.9% 100ML 100 ML IV SCH ×4 (03:04→20:38)
[2018-03-05] MEDS: GABAPENTIN 600MG Q8H DOSE PO SCH (05:42)
[2018-03-05 06:39] LABS: BASO % 0.4 %; BASO ABS # 0.01 K/uL (0-0.2); EOS ABS # 0.07 K/uL (0-0.5); HEMATOCRIT 37.8 % (42-52); HEMOGLOBIN 12.5 g/dL (14.0-18.0); LYMPH % 30.8 %; LYMPH ABS # 0.72 K/uL (1.2-3.4); MEAN CELL VOLUME 85.1 fL (80-100); MEAN CORPUSCULAR HEMOGLOBIN 28.2 pg (25-34); MEAN CORPUSCULAR HGB CONC 33.1 g/dl (32-36); MEAN PLATELET VOLUME 9.2 fL (7.4-10.4); MONO % 11.1 %; MONO ABS # 0.26 K/uL (0.11-0.59); NEUT % 54.7 %; NEUT ABS # 1.28 K/uL (1.4-6.5); PLATELET COUNT 117 K/uL (130-400); RED CELL DISTRIBUTION WIDTH CV 14.2 % (11.5-14.5); RED CELL DISTRIBUTION WIDTH SD 43.8 fL (36.4-46.3); WHITE BLOOD COUNT 2.34 K/uL (4.8-10.8)
[2018-03-05 07:04] LABS: CREATININE 0.87 mg/dl (0.60-1.40)
[2018-03-05 07:05] LABS: CALCIUM 8.2 mg/dl (8.5-10.1); POTASSIUM 3.8 mmol/L (3.5-5.1)
[2018-03-05] MEDS: MULTI-VITAMIN INFUSION INJ 10 ML, THIAMINE HCL INJ 100 MG, FoLIC ACID INJ 1 MG in SODIU... IV SCH (08:57)
[2018-03-05] MEDS: LORAZEPAM 2 MG TAB PO SCH ×3 (08:57→20:38)
[2018-03-05] MEDS: CITALOPRAM 20 MG TAB PO SCH (08:58)
[2018-03-05] MEDS: PANTOprazole SOD 40 MG TAB PO SCH ×2 (08:58→20:38)
[2018-03-05] MEDS: GABAPENTIN 600MG Q12H DOSE PO SCH (08:58)
[2018-03-05] MEDS: HEPARIN SOD 5000 UNIT/0.5 ML CARP SQ SCH ×2 (09:00→20:41)
[2018-03-05] MEDS: OXYCODONE/ACETAMINOPHEN 5-325 TAB PO PRN ×2 (11:36→15:51)
--- NOTE | 2018-03-05 17:05 | Progress Note ---
Internal Med Progress Note Date of Service: March 05, 2018. Provider Documentation: SUBJECTIVE: nausea/vomiting/diarrhea resolved tolerating regular diet still has some abdominal pain afebrile no sob OBJECTIVE: Vital Signs-as noted below Exam: General-alert and oriented. Not in distress ENT-Normal hearing Neck-no neck masses Lungs-cta b/l no wheezing no crackles Heart-s1 and s2 heard regular rate and rhythm no murmurs Abdomen-soft bowel sounds present non tender no distension Extremities-no edema no erythema Neuro-alert and awake 'moves extremities Lab data as noted below. ASSESSMENT & PLAN: This 48-year-old male presents with nausea, vomiting, diarrhea and abdominal discomfort. 1. Nausea, vomiting, diarrhea, and abdominal discomfort, most likely viral gastroenteritis. symptoms improved since hospitalized continue to monitor. diet advanced. resolved. tolerating regular diet 2. Leukopenia most;y from viral syndrome will monitor 3.Bibasilar ground glass Lung nodules aspiration pneumonitis/ started on Unasyn repeat ct chest in 3months no complaints 4. Alcoholism. The patient was alcoholic, history of alcoholism in the past and stopped drinking about 5 years ago but restarted about 6 weeks back because he was worried about dental extractions, drinking about 6 packs beer per day. Did not drink for last 2 days prior to admission because of his ongoing symptoms. on gabapentin, alcohol withdrawal protocol with IV Ativan p.r.n. banana bag. stable. 5. History of alcoholic liver cirrhosis, seems stable. 6. Depression, anxiety. Continue his home medications. 7. History of gallstone pancreatitis, status post cholecystectomy, currently lipase is normal. CAT scan was unremarkable. 8. History of lung nodules on the CT of abdomen and pelvis Will follow CT of the chest. 9. Hypokalemia replace. 10. Deep vein thrombosis prophylaxis, SCDs and heparin subQ. DISPOSITION transfer to medical floor pt/ot possible d/c in am Vital Signs: Date Time Temp Pulse Resp B/P (MAP) Pulse Ox O2 Delivery O2 Flow Rate FiO2 03/05/18 15:43 36.6 69 18 118/78 (91) 98 Room Air 03/05/18 11:02 36.5 90 20 127/84 (98) 97 Room Air 03/05/18 10:04 36.9 98 18 96 03/05/18 08:17 Room Air 03/05/18 07:44 36.9 98 18 115/74 (88) 96 03/05/18 04:00 96 Room Air 03/05/18 03:43 36.8 87 16 102/69 (80) 97 Room Air 03/05/18 00:07 36.4 89 18 102/73 (83) 96 Room Air 03/05/18 00:00 96 Room Air 03/04/18 20:00 96 Room Air 03/04/18 19:44 36.6 86 18 119/78 (92) 97 Room Air Lab Results: Results Past 24 Hours Test 03/05/18 05:59 Range/Units White Blood Count 2.34 4.8-10.8 K/uL Red Blood Count 4.44 4.7-6.1 M/uL Hemoglobin 12.5 14.0-18.0 g/dL Hematocrit 37.8 42-52 % Mean Corpuscular Volume 85.1 80-100 fL Mean Corpuscular Hemoglobin 28.2 25-34 pg Mean Corpuscular Hemoglobin Concent 33.1 32-36 g/dl Platelet Count 117 130-400 K/uL Mean Platelet Volume 9.2 7.4-10.4 fL Neutrophils (%) (Auto) 54.7 % Lymphocytes (%) (Auto) 30.8 % Monocytes (%) (Auto) 11.1 % Eosinophils (%) (Auto) 3.0 % Basophils (%) (Auto) 0.4 % Neutrophils # (Auto) 1.28 1.4-6.5 K/uL Lymphocytes # (Auto) 0.72 1.2-3.4 K/uL Monocytes # (Auto) 0.26 0.11-0.59 K/uL Eosinophils # (Auto) 0.07 0-0.5 K/uL Basophils # (Auto) 0.01 0-0.2 K/uL RDW Standard Deviation 43.8 36.4-46.3 fL RDW Coefficient of Variation 14.2 11.5-14.5 % Immature Granulocyte % (Auto) 0.0 % Immature Granulocyte # (Auto) 0.00 0.00-0.02 K/uL Sodium Level 138 136-145 mmol/L Potassium Level 3.8 3.5-5.1 mmol/L Chloride Level 103 98-107 mmol/L Carbon Dioxide Level 32 21-32 mmol/L Anion Gap 3.0 3-11 mmol/L Blood Urea Nitrogen 3 7-18 mg/dl Creatinine 0.87 0.60-1.40 mg/dl Est Creatinine Clear Calc Drug Dose 87.8 ml/min Estimated GFR () 118.3 Estimated GFR (Non- 102.1 BUN/Creatinine Ratio 3.8 10-20 Random Glucose 118 70-99 mg/dl Calcium Level 8.2 8.5-10.1 mg/dl Magnesium Level 1.9 1.8-2.4 mg/dl
[2018-03-06] MEDS: AMPICILLIN/SULBACTAM SOD INJ 1,500 MG in SODIUM CHLORIDE 0.9% 100ML 100 ML IV SCH ×3 (02:56→14:33)
[2018-03-06] MEDS: OXYCODONE/ACETAMINOPHEN 5-325 TAB PO PRN ×2 (03:41→07:59)
[2018-03-06] MEDS: GABAPENTIN 600MG Q12H DOSE PO SCH (06:28)
[2018-03-06 06:43] LABS: BASO % 0.4 %; BASO ABS # 0.01 K/uL (0-0.2); EOS % 2.3 %; EOS ABS # 0.06 K/uL (0-0.5); HEMOGLOBIN 12.6 g/dL (14.0-18.0); LYMPH % 29.6 %; LYMPH ABS # 0.76 K/uL (1.2-3.4); MEAN CELL VOLUME 84.3 fL (80-100); MEAN CORPUSCULAR HEMOGLOBIN 27.9 pg (25-34); MEAN CORPUSCULAR HGB CONC 33.2 g/dl (32-36); MEAN PLATELET VOLUME 9.4 fL (7.4-10.4); MONO % 8.2 %; MONO ABS # 0.21 K/uL (0.11-0.59); NEUT % 59.5 %; NEUT ABS # 1.53 K/uL (1.4-6.5); PLATELET COUNT 125 K/uL (130-400); RED CELL DISTRIBUTION WIDTH CV 14.1 % (11.5-14.5); RED CELL DISTRIBUTION WIDTH SD 43.6 fL (36.4-46.3); WHITE BLOOD COUNT 2.57 K/uL (4.8-10.8)
[2018-03-06 06:58] VITALS: BP 109/73; PULSE 69; TEMP 36.4; O2SAT 97
[2018-03-06 07:05] LABS: CALCIUM 8.3 mg/dl (8.5-10.1); CREATININE 0.94 mg/dl (0.60-1.40); POTASSIUM 4.1 mmol/L (3.5-5.1)
[2018-03-06] MEDS: CITALOPRAM 20 MG TAB PO SCH (07:56)
[2018-03-06] MEDS: PANTOprazole SOD 40 MG TAB PO SCH (07:56)
[2018-03-06] MEDS: LORAZEPAM 2 MG TAB PO SCH ×2 (07:57→14:33)
[2018-03-06] MEDS: HEPARIN SOD 5000 UNIT/0.5 ML CARP SQ SCH (08:54)
[2018-03-06] MEDS ORDERED: MULT-1042 PO (10:50)
[2018-03-06] MEDS ORDERED: LCTX PO (10:50)
[2018-03-06] MEDS ORDERED: AMOX875T PO (10:50)
[2018-03-06] MEDS ORDERED: PANT40TA PO (10:50)
[2018-03-06] MEDS ORDERED: THIA50TA3 PO (10:50)
--- NOTE | 2018-03-06 10:58 | Discharge Instructions ---
Discharge Instructions Date of Service March 06, 2018. Admission Reason for Admission: Alcohol Abuse, Vomiting And Diarrhea Discharge Discharge Diagnosis / Problem: n/v and diarrhea, alcoholism Discharge Goals Goal(s): Decrease discomfort, Improve function Activity Recommendations Activity Limitations: resume your previous activity . Instructions / Follow-Up Instructions / Follow-Up FOLLOWUP WITH FAMILY DOCTOR ON February AT 12:45PM. STRONGLY ADVICE FOR ALCOHOL CESSATION. CT SCAN OF CHEST IN 3 MONTHS FOR LUNG NODULES WITH FAMILY DOCTOR. NOT TO TAKE LORAZEPAM WHILE DRINKING ALCOHOL NOT TO TAKE NAPROSYN, ALEVE OR IBUPROFEN FOR ROLL WRAPPER THEY CAN CAUSE GASTRIC ULCERS, KIDNEY FAILURE AND HEART ATTACKS. Current Hospital Diet Patient's current hospital diet: Low Sodium Diet (2gm Na) Discharge Diet Recommended Diet: Low Sodium Diet (2gm Na) Pending Studies Studies pending at discharge: no Medical Emergencies . Who to Call and When: Medical Emergencies: If at any time you feel your situation is an emergency, please call 911 immediately. . Non-Emergent Contact Non-Emergency issues call your: Primary Care Provider . . "Provider Documentation" section prepared by Damien Barreto. .
[2018-03-06 10:59] VITALS: BP 109/73; PULSE 69; TEMP 36.4; O2SAT 97
--- NOTE | 2018-03-06 11:45 | Progress Note ---
Internal Med Progress Note Date of Service: March 06, 2018. Provider Documentation: SUBJECTIVE: EATING FINE NO NAUSEA NO DIARRHEA AFEBRILE RESTING COMFORTABLY OBJECTIVE: Vital Signs-as noted below Exam: General-alert and oriented. Not in distress ENT-Normal hearing Neck-no neck masses Lungs-cta b/l no wheezing no crackles Heart-s1 and s2 heard regular rate and rhythm no murmurs Abdomen-soft bowel sounds present non tender no distension Extremities-no edema no erythema Neuro-alert and awake 'moves extremities Lab data as noted below. ASSESSMENT & PLAN: This 48-year-old male presents with nausea, vomiting, diarrhea and abdominal discomfort. 1. Nausea, vomiting, diarrhea, and abdominal discomfort, most likely viral gastroenteritis. symptoms improved since hospitalized continue to monitor. diet advanced. resolved. tolerating regular diet IMPROVED 2. Leukopenia mosty from viral syndrome will monitor 3.Bibasilar ground glass Lung nodules aspiration pneumonitis/ started on Unasyn repeat ct chest in 3months d/c on po augmentin 4. Alcoholism. The patient was alcoholic, history of alcoholism in the past and stopped drinking about 5 years ago but restarted about 6 weeks back because he was worried about dental extractions, drinking about 6 packs beer per day. Did not drink for last 2 days prior to admission because of his ongoing symptoms. on gabapentin, alcohol withdrawal protocol with IV Ativan p.r.n. banana bag. stable.Advice for alcohol cessation 5. History of alcoholic liver cirrhosis, seems stable.f/u with pcp 6. Depression, anxiety. Continue his home medications. 7. History of gallstone pancreatitis, status post cholecystectomy, currently lipase is normal. CAT scan was unremarkable. 8. History of lung nodules on the CT of abdomen and pelvis Followup CT of the chest ijn 3 months with pcp. 9. Hypokalemia replace. Discharged home Vital Signs: Date Time Temp Pulse Resp B/P (MAP) Pulse Ox O2 Delivery O2 Flow Rate FiO2 03/06/18 08:30 Room Air 03/06/18 06:58 36.4 69 16 109/73 (85) 97 Room Air 03/06/18 00:00 Room Air 03/05/18 23:26 37.0 77 18 104/67 (79) 98 Room Air 03/05/18 16:00 96 Room Air 03/05/18 15:43 36.6 69 18 118/78 (91) 98 Room Air Lab Results: Results Past 24 Hours Test 03/06/18 06:22 Range/Units White Blood Count 2.57 4.8-10.8 K/uL Red Blood Count 4.51 4.7-6.1 M/uL Hemoglobin 12.6 14.0-18.0 g/dL Hematocrit 38.0 42-52 % Mean Corpuscular Volume 84.3 80-100 fL Mean Corpuscular Hemoglobin 27.9 25-34 pg Mean Corpuscular Hemoglobin Concent 33.2 32-36 g/dl Platelet Count 125 130-400 K/uL Mean Platelet Volume 9.4 7.4-10.4 fL Neutrophils (%) (Auto) 59.5 % Lymphocytes (%) (Auto) 29.6 % Monocytes (%) (Auto) 8.2 % Eosinophils (%) (Auto) 2.3 % Basophils (%) (Auto) 0.4 % Neutrophils # (Auto) 1.53 1.4-6.5 K/uL Lymphocytes # (Auto) 0.76 1.2-3.4 K/uL Monocytes # (Auto) 0.21 0.11-0.59 K/uL Eosinophils # (Auto) 0.06 0-0.5 K/uL Basophils # (Auto) 0.01 0-0.2 K/uL RDW Standard Deviation 43.6 36.4-46.3 fL RDW Coefficient of Variation 14.1 11.5-14.5 % Immature Granulocyte % (Auto) 0.0 % Immature Granulocyte # (Auto) 0.00 0.00-0.02 K/uL Sodium Level 135 136-145 mmol/L Potassium Level 4.1 3.5-5.1 mmol/L Chloride Level 100 98-107 mmol/L Carbon Dioxide Level 32 21-32 mmol/L Anion Gap 3.0 3-11 mmol/L Blood Urea Nitrogen 9 7-18 mg/dl Creatinine 0.94 0.60-1.40 mg/dl Est Creatinine Clear Calc Drug Dose 78.8 ml/min Estimated GFR () 110.7 Estimated GFR (Non- 95.5 BUN/Creatinine Ratio 9.4 10-20 Random Glucose 94 70-99 mg/dl Calcium Level 8.3 8.5-10.1 mg/dl Magnesium Level 1.8 1.8-2.4 mg/dl
--- NOTE | 2018-03-06 11:49 | Discharge Summary ---
Discharge Summary Date of Service March 06, 2018. Discharge Summary Admission Date: March 03, 2018 at 11:44 Discharge Date: March 06, 2018 Discharge Disposition: Home Principal Diagnosis: GASTROENTERITIS ALCOHOLISM Secondary Diagnoses/Problems: alcoholism, pancreatitis, history of basal cell carcinoma, history of depression with anxiety, osteoporosis, history of alcoholic liver cirrhosis, splenomegaly, history of cholecystectomy Procedures: CT ABD/PELVIS: 1. No acute intra-abdominal or intrapelvic abnormality identified. 2. No bowel obstruction or focal bowel wall thickening. Normal appendix. 3. Partially imaged groundglass nodules of the bilateral lung bases measuring up to 8 x 7 mm on the right suggest infectious or inflammatory pneumonitis. 4. Prior cholecystectomy. 5. Mild splenomegaly. CT CHEST: 1. Groundglass nodules of the bilateral lung bases left greater than right with associated bronchovascular distribution of nodular consolidative opacities within the basal left lower lobe suggest bronchopneumonia or aspiration pneumonitis. Three-month follow-up CT recommended to assess stability of the 8 mm medial basal segment right lower lobe groundglass nodule. 2. No pleural effusion or pathologic adenopathy. 3. Prior cholecystectomy. Medication Reconciliation New Medications: Amoxicillin & Pot Clavulanate (Augmentin 875-125 mg) 1 Tab Tab 875 MG PO BID for 6 Days, #8 TAB Lactobacillus Acidophilus (Lactinex) Tab 2 TAB PO BID for 7 Days, TAB Multiple Vitamins W/ Minerals (Multi Vitamin and Mineral) 1 Tab Tab 1 TAB PO DAILY, #30 Pantoprazole (Protonix) 40 Mg Tab 40 MG PO DAILY, #30 TAB Thiamine Hcl (Vitamin B-1) 50 Mg Tab 50 MG PO DAILY for 30 Days, TAB Continued Medications: Citalopram Hydrobromide (Citalopram Hydrobromide) 20 Mg Tab 20 MG PO DAILY, TAB Gabapentin (Neurontin) 100 Mg Cap 100 MG PO TID Lorazepam (Lorazepam) 2 Mg Tab 2 MG PO TID Ondasetron Odt (Zofran Odt) 4 Mg Tab 4 MG SL Q6H for Nausea, #12 TAB Temazepam (Restoril) 15 Mg Cap 15 MG PO HS PRN for Sleep, CAP Tramadol (Ultram) 50 Mg Tab 50-100 MG PO Q6H PRN for Pain, TAB Discontinued Medications: Naproxen (Naproxen) 500 Mg Tab 1 TAB PO BID Admission Information HPI (per Admitting provider): A 48-year-old male with past medical history significant for alcoholism, pancreatitis, history of basal cell carcinoma, history of depression with anxiety, osteoporosis, history of alcoholic liver cirrhosis, splenomegaly, history of cholecystectomy, presents with nausea, vomiting, diarrhea, and abdominal pain since last couple of days. The patient was in the ER yesterday with nausea, vomiting, diarrhea and symptomatically improved and workup was negative and discharged home and he was also in the ER on 02/18/2018 for same problem and supposed to follow up with family doctor, but did not follow. Yesterday from Er he was discharged on Zofran, but after going home, again he was having several episodes of vomiting and several episodes of diarrhea and abdominal pain, so this prompted him to come to the ER. The patient says he has about 3-4 episodes of diarrhea, nausea, vomiting and was not able to eat much since last . Denies any fever, chills. No headaches. No blurred vision. No earache. No runny nose. Has a sore throat from vomiting. No difficulty swallowing. No shortness of breath, no cough, no fever, no chills. Has some lower chest pain and abdominal pain, he states mostly from the vomiting. Denies any blood in the stools, no black stools, no blood in the urine. Normal bladder movements. No swelling in the legs. Currently, resting comfortable and hemodynamically stable. The patient also has history of alcoholism and states since last 5 years, he stopped drinking after he was detoxed in the hospital. He lives with his mother and as per mother he started drinking again from last 6 weeks when he was told that he is to have his tooth extracted and he worried about the procedure and started drinking again; drinking about 6 packs a day, but he states he did not drink the last couple of days because of his ongoing symptoms. Physical Exam (per Admitting): GENERAL: The patient is of moderately build, not in distress. VITAL SIGNS: Temperature 36.6, pulse 93, respiratory rate 18, blood pressure 140/84, oxygen 97% on room air. HEENT: No pallor, no icterus. Pupils equal, round, and react to light. NECK: No JVD, no neck masses, no carotid bruits. CARDIOVASCULAR: S1, S2 heard, regular rate and rhythm, no murmur, no gallop. RESPIRATORY SYSTEM: Clear to auscultation bilaterally. No wheezing, no crackles, no accessory muscle use. ABDOMEN: Soft, bowel sounds present. Some mild diffuse discomfort. No guarding, no rigidity, no distention. CENTRAL NERVOUS SYSTEM: Cranial nerves II-XII grossly intact. Nonfocal. EXTREMITIES: No edema, no erythema. Hospital Course This 48-year-old male presents with nausea, vomiting, diarrhea and abdominal discomfort. 1. Nausea, vomiting, diarrhea, and abdominal discomfort, most likely viral gastroenteritis. symptoms improved since hospitalized continue to monitor. diet advanced. resolved. tolerating regular diet IMPROVED 2. Leukopenia mosty from viral syndrome will monitor 3.Bibasilar ground glass Lung nodules aspiration pneumonitis/ started on Unasyn repeat ct chest in 3months d/c on po augmentin 4. Alcoholism. The patient was alcoholic, history of alcoholism in the past and stopped drinking about 5 years ago but restarted about 6 weeks back because he was worried about dental extractions, drinking about 6 packs beer per day. Did not drink for last 2 days prior to admission because of his ongoing symptoms. on gabapentin, alcohol withdrawal protocol with IV Ativan p.r.n. banana bag. stable.Advice for alcohol cessation 5. History of alcoholic liver cirrhosis, seems stable.f/u with pcp 6. Depression, anxiety. Continue his home medications. 7. History of gallstone pancreatitis, status post cholecystectomy, currently lipase is normal. CAT scan was unremarkable. 8. History of lung nodules on the CT of abdomen and pelvis Followup CT of the chest ijn 3 months with pcp. 9. Hypokalemia replace. Discharged home Total time spent on discharge = 35MINUTES This includes examination of the patient, discharge planning, medication reconciliation, and communication with other providers. Discharge Instructions Discharge Instructions Date of Service March 06, 2018. Admission Reason for Admission: Alcohol Abuse, Vomiting And Diarrhea Discharge Discharge Diagnosis / Problem: n/v and diarrhea, alcoholism Discharge Goals Goal(s): Decrease discomfort, Improve function Activity Recommendations Activity Limitations: resume your previous activity . Instructions / Follow-Up Instructions / Follow-Up FOLLOWUP WITH FAMILY DOCTOR ON February AT 12:45PM. STRONGLY ADVICE FOR ALCOHOL CESSATION. CT SCAN OF CHEST IN 3 MONTHS FOR LUNG NODULES WITH FAMILY DOCTOR. Current Hospital Diet Patient's current hospital diet: Low Sodium Diet (2gm Na) Discharge Diet Recommended Diet: Low Sodium Diet (2gm Na) Pending Studies Studies pending at discharge: no Medical Emergencies . Who to Call and When: Medical Emergencies: If at any time you feel your situation is an emergency, please call 911 immediately. . Non-Emergent Contact Non-Emergency issues call your: Primary Care Provider . . "Provider Documentation" section prepared by Damien Barreto.
[2018-03-07] MEDS ORDERED: GABAPENTIN 600MG X1 DOSE PO SCH (06:00)
[2018-03-07] MEDS ORDERED: GABAPENTIN 100 MG CAP PO SCH (14:00)
== END 2018-03-06 16:45 | disposition home or self-care (01) | DRG 391 ==
LOC: C.EDB 08:02 → C.2E 11:44 → ENRESERV 11:55 → C.2E 12:54 → UNDOADMIN 12:54 → ENRESERV 03-05 10:03 → C.4E 03-05 10:55 → C.2E 03-05 10:55
PROVIDERS: ADMIT Internal Medicine; ATTEND Hospitalist
DX: A08.4 Viral intestinal infection, unspecified (principal); J69.0 Pneumonitis due to inhalation of food and vomit; K70.30 Alcoholic cirrhosis of liver without ascites; F10.20 Alcohol dependence, uncomplicated; E87.6 Hypokalemia; Z88.2 Allergy status to sulfonamides; Z88.5 Allergy status to narcotic agent; Z85.828 Personal history of other malignant neoplasm of skin; M81.0 Age-related osteoporosis without current pathological fracture; F41.8 Other specified anxiety disorders; R91.8 Other nonspecific abnormal finding of lung field

== ENCOUNTER 2018-11-27 18:56 | Inpatient (IN) ==
[2018-11-27] MEDS ORDERED: SODIUM CHLORIDE 0.9% 1000ML 1,000 ML IV ONE (19:40)
[2018-11-27] MEDS ORDERED: KETOROLAC TROMETHAMINE 15 MG/ML VIAL IV STA (19:40)
[2018-11-27] MEDS ORDERED: ONDANSETRON 4 MG OD TAB PO STA (19:40)
[2018-11-27 20:21] LABS: Basophils # (auto) 0.02 K/uL (0-0.2); Basophils % (auto) 0.2 %; Eosinophils # (auto) 0.06 K/uL (0-0.5); Eosinophils % (auto) 0.7 %; Hematocrit (blood only) 42.3 % (42-52); Hemoglobin 14.2 g/dL (14.0-18.0); Immature Granulocytes # (auto) 0.02 K/uL (0.00-0.02); Immature Granulocytes % (auto) 0.2 %; Lymphocytes # (auto) 0.83 K/uL (1.2-3.4); Lymphocytes % (auto) 9.1 %; Mean Corpuscular Hgb Conc 33.6 g/dL (32-36); Mean Corpuscular Volume 88.3 fL (80-100); Mean Platelet Volume 11.2 fL (7.4-10.4); Monocytes % (auto) 7.7 %; Neutrophils # (auto) 7.45 K/uL (1.4-6.5); Neutrophils % (auto) 82.1 %; Platelet Count 120 K/uL (130-400); RDW Coefficient of Variation 12.5 % (11.5-14.5); RDW Standard Deviation 40.2 fL (36.4-46.3); Red Blood Count 4.79 M/uL (4.7-6.1); White Blood Count 9.08 K/uL (4.8-10.8)
[2018-11-27 20:41] LABS: Albumin Level 4.4 gm/dl (3.4-5.0); Bilirubin Direct 0.1 mg/dl (0-0.2); Creatinine Clr Calc Pharmacy 82.7 ml/min; Est GFR (African American) 101.5; Est GFR (Non-African American) 87.5; Potassium 3.7 mmol/L (3.5-5.1)
[2018-11-27 20:44] LABS: Bilirubin,Total 0.6 mg/dl (0.2-1); Total Protein 8.2 gm/dl (6.4-8.2)
[2018-11-27] MEDS ORDERED: IOVERSOL 100ml IV PRN (20:51)
--- NOTE | 2018-11-27 21:04 | CT Scan Report ---
CT abd pelvis IV con only CLINICAL HISTORY: 48 years-old Male presenting with abdominal pain distention, mid abdominal pain. TECHNIQUE: Multidetector CT of the abdomen and pelvis was performed after the administration of intra venous contrast. IV contrast: 90 mL of Optiray 320. One or more dose lowering techniques were used co nsistent with the principles of ALARA (as low as reasonably achievable), including automatic exposure control, mA or kV adjustment to individual patient size, and/or use of iterative reconstruction. COMPARISON: 11/12/2013. CT DOSE (mGy.cm): The estimated cumulative dose is 280.45 mGy.cm. 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 Intramedullary nail fixation of the femoral necks and proximal metadiaphyses. Lung bases: Minimal dependent changes likely atelectasis. Normal heart size. No pericardial or pleura l effusion. Liver: Normal morphology. No liver lesion. Patent hepatic vasculature. Biliary: No intrahepatic or extrahepatic biliary ductal dilatation. Gallbladder surgically absent. Pancreas: Normal. Spleen: Mild splenomegaly measuring 14.3 cm in maximal sagittal dimension similar to prior exam. Adrenal glands: Normal. Kidneys and ureters: Normal. No hydronephrosis. Bladder: Normal. Pelvic organs: Prostate enlargement likely secondary to benign prostatic hyperplasia. Bowel: Dilated and hyperemic appendix with adjacent peritoneal thickening and periappendiceal fluid a nd inflammatory change. Hyperdensity at the appendiceal base suggests an obstructing appendicolith. T he appendix measures up to 1.4 cm in diameter. No bowel obstruction. Peritoneal cavity: Trace fluid in the right paracolic gutter. No evidence of abscess. No extraluminal or free intraperitoneal gas. Lymph nodes: Few subcentimeter lymph nodes in the portacaval region, nonspecific. Vasculature: Atherosclerosis of the normal caliber abdominal aorta. IVC patent. Abdominal wall: Small fat-containing umbilical hernia. Musculoskeletal: Intramedullary nail fixation of the proximal femurs. Superior endplate concavity at L4 unchanged from prior. IMPRESSION: 1. Acute uncomplicated appendicitis. No abscess or evidence of perforation. Surgical consultation re commended. 2. Mild splenomegaly similar to prior exam. The report will be called/faxed according to standard departmental protocol. Electronically signed by: Jaime Chao M.D. 11/27/2018 9:03 PM
[2018-11-27] MEDS ORDERED: MoRPHine SULFATE 4 MG/ML 1 ML CARP\\VIAL IV STA (22:14)
[2018-11-27] MEDS ORDERED: cefTRIAXone SODIUM 1,000 MG/50 ML BAG IV STA (22:14)
[2018-11-27] MEDS ORDERED: metroNIDAZOLE 500 MG/100 ML BAG IV STA (22:14)
[2018-11-27] MEDS ORDERED: BUPIVACAINE 0.5 % 5 MG/1 ML MPF 30ML VIAL ONE (22:31)
[2018-11-27] MEDS ORDERED: fentaNYL citrate 100 MCG/2 ML VIAL ONE (22:39)
[2018-11-27] MEDS ORDERED: MIDAZOLAM HCL 1 MG/ML 2ML VIAL ONE (22:40)
--- NOTE | 2018-11-27 22:46 | History & Physical Report ---
Date of Service November 27, 2018 Assessment & Plan (1) Appendicitis: pt with acute appendicitis- for laparoscopic appendectomy possible open operation. History of Present Illness Primary Care Provider: Jose Francisco Luevano MD pt to ER with acute abd pain- mostly RLQ CT evidence of acute appendicitis Allergies Allergy/AdvReac Type Severity Reaction Status Date / Time Sulfa (Sulfonamide Allergy Intermediate swells Verified 11/27/18 19:57 Antibiotics) up/hives hydrocodone Allergy Unknown rash Verified 11/27/18 19:57 Home Medications Home Medications Medication Instructions Recorded Confirmed Type citalopram [Celexa] 20 mg PO DAILY 11/27/18 11/27/18 History dicyclomine 10 mg PO BID 11/27/18 11/27/18 History doxepin 50 mg PO HS PRN 11/27/18 11/27/18 History gabapentin [Neurontin] 100 mg PO TID 11/27/18 11/27/18 History lorazepam [Ativan] 2 mg PO TID 11/27/18 11/27/18 History mirtazapine [Remeron] 15 mg PO DAILY 11/27/18 11/27/18 History multivitamin 1 tab PO DAILY 11/27/18 11/27/18 History omeprazole 40 mg PO DAILY 11/27/18 11/27/18 History ranitidine HCl [Zantac] 150 mg PO DAILY PRN 11/27/18 11/27/18 History Past Med/Surg History Social History Feels Safe at Home: Yes Smoking Status: Never smoker Physical Exam 2 Vital Signs (Past 24 Hours): Last Vital Signs Temp 36.6 C 11/27/18 19:01 Pulse 93 H 11/27/18 22:37 Resp 18 11/27/18 22:37 BP 119/85 11/27/18 22:37 Pulse Ox 98 11/27/18 22:37 Constitutional: no acute distress and not ill appearing Eyes: PERRL, conjunctivae normal, anicteric sclerae Respiratory: normal respiratory effort; no respiratory distress Cardiovascular: Rate/Rhythm: regular rate and regular rhythm Gastrointestinal (Abdomen): Percussion/Palpation: + abdomen tender and abdomen soft Skin: no rashes, warm and dry Psychiatric: Orientation: alert Results & Data Medications Administered Ceftriaxone Sodium (Rocephin) 1,000 mg in 50 mls @ 100 mls/hr IV NOW STA Stop: 11/27/18 22:43 Last Admin: 11/27/18 22:35 Dose: 100 mls/hr Ioversol (Optiray 320 100ml) 90 ml IV ONCE PRN PRN Reason: Interaction Checking Stop: 12/01/18 20:50 Last Admin: 11/27/18 20:52 Dose: 90 ml
--- NOTE | 2018-11-27 22:54 | Anesthesiology Consultation ---
Date of Service November 27, 2018 Assessment & Plan (1) Encounter for pre-operative examination: Chart Review Chart Review: Acceptable Risk for Surgery and Patient NOT seen in Pre Admission Testing Consults Requested none ASA [id number] Proposed Anesthesia Anesthesia Type: General Risk / Benefits Reviewed With: PT / POA / Parent / Guardian, Accepts Plan and Informed Consent Obtained NPO Date Last Intake of Fluids: 11/27/18 Time Last Intake of Fluids: 17:00 Date Last Intake of Solids: 11/27/18 Time Last Intake of Solids: 15:00 History Surgery Operation Date: 11/27/18 23:00 Proposed Procedures p Laparoscopic Appendectomy - Darrel Fall MD, FACS Height/Weight Height: 6 ft Weight: 65.4 kg Allergies Allergy/AdvReac Type Severity Reaction Status Date / Time Sulfa (Sulfonamide Allergy Intermediate swells Verified 11/27/18 19:57 Antibiotics) up/hives hydrocodone Allergy Unknown rash Verified 11/27/18 19:57 Medications Home Medications Medication Instructions Recorded Confirmed Last Taken citalopram [Celexa] 20 mg PO DAILY 11/27/18 11/27/18 Unknown dicyclomine 10 mg PO BID 11/27/18 11/27/18 Unknown doxepin 50 mg PO HS PRN 11/27/18 11/27/18 Unknown gabapentin [Neurontin] 100 mg PO TID 11/27/18 11/27/18 Unknown lorazepam [Ativan] 2 mg PO TID 11/27/18 11/27/18 Unknown mirtazapine [Remeron] 15 mg PO DAILY 11/27/18 11/27/18 Unknown multivitamin 1 tab PO DAILY 11/27/18 11/27/18 Unknown omeprazole 40 mg PO DAILY 11/27/18 11/27/18 Unknown ranitidine HCl [Zantac] 150 mg PO DAILY PRN 11/27/18 11/27/18 Unknown Active Medications Generic Name Dose Route Start Last Admin Trade Name Freq PRN Reason Stop Dose Admin Ioversol 90 ml 11/27/18 20:51 11/27/18 20:52 Optiray 320 100ml IV 12/01/18 20:50 90 ml ONCE PRN Administration Interaction Checking Past Medical History Medical History Alcoholism Chronic GERD Chronic pain Femur fracture bilateral Past Surgical History Surgical History History of laparoscopic cholecystectomy Past Anesthesia History No Hx of Anesthesia Complications and No Family Hx of Anesthesia Complications Motion Sickness Screening History of Motion Sickness: No Social History Smoking Status: Never smoker Hx Alcohol Use: Yes Alcohol Intake Frequency Comment: patient has not had alcohol in several years Hx Substance Use: No Exercise / Class Metabolic Activity II 4-5 Yardwork/Stairs/Walk up hill Review of Systems no chest pain or sob Physical Exam Vital Signs Last Vital Signs Temp 36.6 C 11/27/18 19:01 Pulse 93 H 11/27/18 22:37 Resp 18 11/27/18 22:37 BP 119/85 11/27/18 22:37 Pulse Ox 98 11/27/18 22:37 ENMT Mouth: + dental restorations and + poor dentition Thyromental Distance: > or= 3.5 Finger Breadths Mallampati Class: II Neck normal visual inspection Respiratory normal respiratory effort Cardiovascular Rate/Rhythm: regular rate and regular rhythm Musculoskeletal Spine: no pain with cervical ROM Neurologic moves all extremities Psychiatric Orientation: alert and oriented x [address] abd pelvis IV con only CLINICAL HISTORY: 48 years-old Male presenting with abdominal pain distention, mid abdominal pain. TECHNIQUE: Multidetector CT of the abdomen and pelvis was performed after the administration of intravenous contrast. IV contrast: 90 mL of Optiray 320. One or more dose lowering techniques were used consistent with the principles of ALARA (as low as reasonably achievable), including automatic exposure control, mA or kV adjustment to individual patient size, and/or use of iterative reconstruction. COMPARISON: 11/12/2013. CT DOSE (mGy.cm): The estimated cumulative dose is 280.45 mGy.cm. 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 Intramedullary nail fixation of the femoral necks and proximal metadiaphyses. Lung bases: Minimal dependent changes likely atelectasis. Normal heart size. No pericardial or pleural effusion. Liver: Normal morphology. No liver lesion. Patent hepatic vasculature. Biliary: No intrahepatic or extrahepatic biliary ductal dilatation. Gallbladder surgically absent. Pancreas: Normal. Spleen: Mild splenomegaly measuring 14.3 cm in maximal sagittal dimension similar to prior exam. Adrenal glands: Normal. Kidneys and ureters: Normal. No hydronephrosis. Bladder: Normal. Pelvic organs: Prostate enlargement likely secondary to benign prostatic hyperplasia. Bowel: Dilated and hyperemic appendix with adjacent peritoneal thickening and periappendiceal fluid and inflammatory change. Hyperdensity at the appendiceal base suggests an obstructing appendicolith. The appendix measures up to 1.4 cm in diameter. No bowel obstruction. Peritoneal cavity: Trace fluid in the right paracolic gutter. No evidence of abscess. No extraluminal or free intraperitoneal gas. Lymph nodes: Few subcentimeter lymph nodes in the portacaval region, nonspecific. Vasculature: Atherosclerosis of the normal caliber abdominal aorta. IVC patent. Abdominal wall: Small fat-containing umbilical hernia. Musculoskeletal: Intramedullary nail fixation of the proximal femurs. Superior endplate concavity at L4 unchanged from prior. IMPRESSION: 1. Acute uncomplicated appendicitis. No abscess or evidence of perforation. Surgical consultation recommended. 2. Mild splenomegaly similar to prior exam. The report will be called/faxed according to standard departmental protocol. Laboratory Results 11/27/18 20:05 11/27/18 20:05
[2018-11-27] MEDS ORDERED: PHENYLEPHRINE 100MCG/ML 5ML SYR IV PRN (23:20)
[2018-11-27] MEDS ORDERED: MEPERIDINE HCL 25 MG/ML CARP IV PRN (23:20)
[2018-11-27] MEDS ORDERED: LABETALOL HCL IV 5 MG/ML 20ML IV PRN (23:20)
[2018-11-27] MEDS ORDERED: ePHEDrine sulfate 50 MG/ML AMP IV PRN (23:20)
[2018-11-27] MEDS ORDERED: fentaNYL citrate 100 MCG/2 ML VIAL IV PRN (23:20)
[2018-11-27] MEDS ORDERED: ATROPINE SULFATE 0.1 MG/ML 10ML SYR IV PRN (23:20)
[2018-11-27] MEDS ORDERED: ONDANSETRON INJ 2 MG/ML 2 ML VIAL IV PRN (23:20)
[2018-11-27] MEDS ORDERED: PROMETHAZINE HCL 12.5 MG in SODIUM CHLORIDE 0.9% 50 ML IV PRN (23:20)
[2018-11-27] MEDS ORDERED: PROPOFOL IV EMULSION 10 MG/ML 20 ML VIAL IV ONE (23:42)
[2018-11-27] MEDS ORDERED: ONDANSETRON INJ 2 MG/ML 2 ML VIAL ONE (23:43)
[2018-11-27] MEDS ORDERED: ROCURONIUM BROMIDE 10 MG/ML 5 ML VIAL ONE (23:43)
[2018-11-27] MEDS ORDERED: LIDOCAINE HCL 2% 2 ML VIAL/AMP(20MG/ML) INFIL ONE (23:43)
[2018-11-27] MEDS ORDERED: SUCCINYLCHOLINE 100MG/5ML SYR ONE (23:43)
[2018-11-27] MEDS ORDERED: NEOSTIGMINE METHYLSULFATE 5 MG/5 ML SYR ONE (23:43)
[2018-11-27] MEDS ORDERED: DEXAMETHASONE SOD INJ 4 MG/ML VIAL ONE (23:43)
[2018-11-27] MEDS ORDERED: GLYCOPYRROLATE 0.2 MG/ML VIAL ONE (23:43)
--- NOTE | 2018-11-27 23:53 | Emergency Department Note ---
Entered by Naila Alvarado acting as a scribe for Gregg Marshall History of Present Illness General Chief complaint: Abdominal Pain Stated complaint: STOMACH PAIN Time Seen by Provider: 11/27/18 19:31 Source: patient History of Present Illness Onset (ago): day(s) 1 Location: abdomen Pain Consistency: + other (worsening) Maximum Pain Intensity: 9 Associated symptoms: + nausea/vomiting (positive nausea; negative vomiting) and + other (negative blood in stool; negative dark black stool); no fever/chills Treatments prior to arrival: none The patient is a 48 year old male who presents to the Emergency Room with complaints of worsening abdominal pain that began yesterday. The patient states that he has had nausea during this time, but denies vomiting. The patient denies blood in his stools, dark black stools, and fevers. The patient states that he previously had his gallbladder removed. The patient states that he stopped drinking alcohol 6 years ago and states that he had a 2 week relapse a few years ago. Home Medications Home Medications Medication Instructions Recorded Confirmed Type citalopram [Celexa] 20 mg PO DAILY 11/27/18 11/27/18 History dicyclomine 10 mg PO BID 11/27/18 11/27/18 History doxepin 50 mg PO HS PRN 11/27/18 11/27/18 History gabapentin [Neurontin] 100 mg PO TID 11/27/18 11/27/18 History lorazepam [Ativan] 2 mg PO TID 11/27/18 11/27/18 History mirtazapine [Remeron] 15 mg PO DAILY 11/27/18 11/27/18 History multivitamin 1 tab PO DAILY 11/27/18 11/27/18 History omeprazole 40 mg PO DAILY 11/27/18 11/27/18 History ranitidine HCl [Zantac] 150 mg PO DAILY PRN 11/27/18 11/27/18 History Allergies Allergy/AdvReac Type Severity Reaction Status Date / Time Sulfa (Sulfonamide Allergy Intermediate swells Verified 11/27/18 19:57 Antibiotics) up/hives hydrocodone Allergy Unknown rash Verified 11/27/18 19:57 Past Med/Surg History Medical History Alcoholism Chronic GERD Chronic pain Femur fracture bilateral Surgical History History of laparoscopic cholecystectomy Social History Feels Safe at Home: Yes Smoking Status: Never smoker Hx Alcohol Use: Yes Hx Substance Use: No Review of Systems See HPI for pertinent positives & negatives. and A total of 10 systems reviewed and were otherwise negative Physical Exam Vital Signs Vital Signs - 24 hr 11/27/18 19:01 11/27/18 20:06 11/27/18 21:02 Temperature 36.6 C Temperature Source Oral Sepsis Recent Fever Within 48 Hours No Sepsis Action Taken by Nursing No Action Required Pulse Rate 102 H Pulse Rate [Finger] 91 H 71 Pulse Rhythm [Finger] Regular Pulse Strength [Finger] Normal Respiratory Rate 18 20 18 Respiratory Effort / Characteristics Non-Labored Spontaneous Non-Labored Non-Labored Respiratory Depth Normal Normal Normal Respiratory Pattern Regular Blood Pressure 121/78 Blood Pressure [Right Arm] 130/81 124/80 Blood Pressure Mean 92 Blood Pressure Mean [Right Arm] 97 94 Blood Pressure Position [Right Arm] Sitting Pulse Oximetry 97 96 99 Oxygen Delivery Method Room Air Room Air Room Air 11/27/18 22:37 Temperature Temperature Source Sepsis Recent Fever Within 48 Hours Sepsis Action Taken by Nursing Pulse Rate Pulse Rate [Finger] 93 H Pulse Rhythm [Finger] Pulse Strength [Finger] Respiratory Rate 18 Respiratory Effort / Characteristics Non-Labored Respiratory Depth Normal Respiratory Pattern Blood Pressure Blood Pressure [Right Arm] 119/85 Blood Pressure Mean Blood Pressure Mean [Right Arm] 96 Blood Pressure Position [Right Arm] Pulse Oximetry 98 Oxygen Delivery Method Room Air GENERAL: The patient is oriented to person, place, and time. Appears well- developed and well-nourished. Does not appear distressed. HENT: Exam performed. Head: Normocephalic and atraumatic. Right Ear: External ear normal. No mastoid tenderness. Left Ear: External ear normal. No mastoid tenderness. Mouth/Throat: The oropharynx is clear and moist. No trismus in the jaw. No dental abscesses or uvula swelling. No oropharyngeal exudate or tonsillar abscesses. EYES: Conjunctivae and EOM are normal. Pupils are equal, round, and reactive to light. Right eye exhibits no discharge. Left eye exhibits no discharge. No scleral icterus. NECK: Normal range of motion. Neck supple. No JVD present. No spinous process tenderness present. No carotid bruit present. No rigidity. No tracheal deviation and normal range of motion present. No Brudzinski's sign and no Kernig 's sign noted. CV: Normal rate, regular rhythm, normal heart sounds and intact distal pulses. There is no peripheral edema. Palpable radial pulses bue. PULM/CHEST: Effort normal and breath sounds normal. No respiratory distress. No stridor. There are no wheezes or rales. Chest Wall: Patient exhibits no tenderness. ABD: The abdomen is soft. Bowel sounds are normal. There is no distension. No mass is present. There is no tenderness. There is no rebound, no guarding, no Islas's sign and no tenderness at McBurney's point. Rovsig negative MUSC/SKEL: Normal range of motion. There is no peripheral edema, tenderness or deformity. LYMPH: No cervical adenopathy. NEURO: Patient is alert and oriented to person, place, and time. Normal strength. No cranial nerve deficit or sensory deficit. Coordination and gait normal. GCS eye subscore is 4. GCS verbal subscore is 5. GCS motor subscore is 6. cerbellar tests wnl. SKIN: Skin is warm and dry. Patient is not diaphoretic. PSYCH: Patient has a normal mood and affect. Behavior is normal. Judgment and thought content normal. Course 1938: Past medical records reviewed. The patient was evaluated in room B6, and a complete history and physical examination were performed. 2009: The patient's bedside US showed no ascites or fluid collection. 2218: Vital signs stable labs within normal limits. CT shows acute appendicitis. I discussed the case with Dr. Veto Russell who will further evaluate the patient. Antibiotics Rocephin and Flagyl will be given to the patient. Consultations Consultation #1: I discussed the case with Dr. Veto Russell who will further evaluate the patient. Time: 22:18 Administered Medications Ioversol (Optiray 320 100ml) 90 ml IV ONCE PRN PRN Reason: Interaction Checking Stop: 12/01/18 20:50 Last Admin: 11/27/18 20:52 Dose: 90 ml Discontinued Medications Sodium Chloride (Nss 1000ml) 1,000 mls @ 999 mls/hr IV .Q1H1M ONE Stop: 11/27/18 20:40 Last Infusion: 11/27/18 21:06 Dose: 0 mls/hr Admin: 11/27/18 20:03 Dose: 999 mls/hr Ceftriaxone Sodium (Rocephin) 1,000 mg in 50 mls @ 100 mls/hr IV NOW STA Stop: 11/27/18 22:43 Last Admin: 11/27/18 22:35 Dose: 100 mls/hr Ketorolac Tromethamine (Toradol) 15 mg IV NOW STA Stop: 11/27/18 19:41 Last Admin: 11/27/18 20:04 Dose: 15 mg Morphine Sulfate (Morphine Sulfate) 4 mg IV NOW STA Stop: 11/27/18 22:15 Last Admin: 11/27/18 22:31 Dose: 4 mg Ondansetron HCl (Zofran Odt) 4 mg PO NOW STA Stop: 11/27/18 19:41 Last Admin: 11/27/18 20:04 Dose: 4 mg Medical Decision Making Medical Records Attestation: I reviewed the patient's medical records. Home Medications Current Medication List: was personally reviewed by me Laboratory Data Attestation: I reviewed the patient's lab results. Result diagrams: 11/27/18 20:05 11/27/18 20:05 Lab Results 11/27/18 11/27/18 Range/Units 20:05 20:05 WBC 9.08 (4.8-10.8) K/uL RBC 4.79 (4.7-6.1) M/uL Hgb 14.2 (14.0-18.0) g/dL Hct 42.3 (42-52) % MCV 88.3 (80-100) fL MCH 29.6 (25-34) pg MCHC 33.6 (32-36) g/dL RDW Std Deviation 40.2 (36.4-46.3) fL RDW Coeff of Carlos 12.5 (11.5-14.5) % Plt Count 120 L (130-400) K/uL MPV 11.2 H (7.4-10.4) fL Immature Gran % (Auto) 0.2 % Neut % (Auto) 82.1 % Lymph % (Auto) 9.1 % Warrick % (Auto) 7.7 % Eos % (Auto) 0.7 % Baso % (Auto) 0.2 % Immature Gran # (Auto) 0.02 (0.00-0.02) K/uL Neut # (Auto) 7.45 H (1.4-6.5) K/uL Lymph # (Auto) 0.83 L (1.2-3.4) K/uL Warrick # (Auto) 0.70 H (0.11-0.59) K/uL Eos # (Auto) 0.06 (0-0.5) K/uL Baso # (Auto) 0.02 (0-0.2) K/uL Sodium 137 (136-145) mmol/L Potassium 3.7 (3.5-5.1) mmol/L Chloride 102 (98-107) mmol/L Carbon Dioxide 29 (21-32) mmol/L Anion Gap 7.0 (3-11) BUN 4 L (7-18) mg/dl Creatinine 1.01 (0.6-1.4) mg/dl Est Cr Clr Drug Dosing 82.7 ml/min Est GFR ( Amer) 101.5 Est GFR (Non-Af Amer) 87.5 BUN/Creatinine Ratio 4.0 L (10-20) Glucose 113 H (70-99) mg/dl Calcium 9.0 (8.5-10.1) mg/dl Total Bilirubin 0.6 (0.2-1) mg/dl Direct Bilirubin 0.1 (0-0.2) mg/dl AST 18 (15-37) U/L ALT 30 (12-78) U/L Alkaline Phosphatase 67 (45-117) U/L Total Protein 8.2 (6.4-8.2) gm/dl Albumin 4.4 (3.4-5.0) gm/dl Lipase 98 (73-393) U/L Imaging Data Radiologist's Impression: Radiology results as stated below per my review and the radiologist's interpretation: CT abd pelvis IV con only CLINICAL HISTORY: 48 years-old Male presenting with abdominal pain distention, mid abdominal pain. TECHNIQUE: Multidetector CT of the abdomen and pelvis was performed after the administration of intravenous contrast. IV contrast: 90 mL of Optiray 320. One or more dose lowering techniques were used consistent with the principles of ALARA (as low as reasonably achievable), including automatic exposure control, mA or kV adjustment to individual patient size, and/or use of iterative reconstruction. COMPARISON: 11/12/2013. CT DOSE (mGy.cm): The estimated cumulative dose is 280.45 mGy.cm. 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 Intramedullary nail fixation of the femoral necks and proximal metadiaphyses. Lung bases: Minimal dependent changes likely atelectasis. Normal heart size. No pericardial or pleural effusion. Liver: Normal morphology. No liver lesion. Patent hepatic vasculature. Biliary: No intrahepatic or extrahepatic biliary ductal dilatation. Gallbladder surgically absent. Pancreas: Normal. Spleen: Mild splenomegaly measuring 14.3 cm in maximal sagittal dimension similar to prior exam. Adrenal glands: Normal. Kidneys and ureters: Normal. No hydronephrosis. Bladder: Normal. Pelvic organs: Prostate enlargement likely secondary to benign prostatic hyperplasia. Bowel: Dilated and hyperemic appendix with adjacent peritoneal thickening and periappendiceal fluid and inflammatory change. Hyperdensity at the appendiceal base suggests an obstructing appendicolith. The appendix measures up to 1.4 cm in diameter. No bowel obstruction. Peritoneal cavity: Trace fluid in the right paracolic gutter. No evidence of abscess. No extraluminal or free intraperitoneal gas. Lymph nodes: Few subcentimeter lymph nodes in the portacaval region, nonspecific. Vasculature: Atherosclerosis of the normal caliber abdominal aorta. IVC patent. Abdominal wall: Small fat-containing umbilical hernia. Musculoskeletal: Intramedullary nail fixation of the proximal femurs. Superior endplate concavity at L4 unchanged from prior. IMPRESSION: 1. Acute uncomplicated appendicitis. No abscess or evidence of perforation. Surgical consultation recommended. 2. Mild splenomegaly similar to prior exam. The report will be called/faxed according to standard departmental protocol. Electronically signed by: Jaime Chao M.D. 11/27/2018 9:03 PM Blood Pressure Blood Pressure Findings: Normal blood pressure MDM Narrative Vital signs stable labs within normal limits. CT shows acute appendicitis. I discussed the case with Dr. Fall-General Surgery who will further evaluate the patient. Antibiotics Rocephin and Flagyl will be given to the patient. Impression & Plan Acute appendicitis Discharge Plan Visit Data *Final* Discharge Date/Time: 11/27/18 22:50 Chief Complaint: Abdominal Pain Stated Complaint: STOMACH PAIN ED Provider: Gregg Marshall Discharge Problem: Acute appendicitis Patient Disposition: Admitted As Inpatient Discharge Instructions Interventions: ED Discharge Assessment Last Done: 11/27/18 22:50 The scribe's documentation has been prepared under my direction and personally reviewed by me in its entirety. I confirm that the note above accurately reflects all work, treatment, procedures, and medical decision making performed by me.
[2018-11-28] MEDS ORDERED: ACETAMINOPHEN 1,000 MG/100 ML VIAL IV ONE (00:17)
--- NOTE | 2018-11-28 00:17 | Operative Report ---
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 Any exceptions are noted below.
[2018-11-28] MEDS ORDERED: LORazepam 1 MG/2 ML VIAL IV PRN (00:30)
[2018-11-28] MEDS ORDERED: LORazepam 0.5 MG/1 ML VIAL IV PRN (00:30)
--- NOTE | 2018-11-28 00:51 | Anesthesiology Progress Note ---
Date of Service November 28, 2018 Anesthesia Post Procedure Vital Signs Vital Signs: Temp Pulse Pulse Resp BP BP Pulse Ox 11/28/18 00:45 36.4 C L 91 H 18 112/81 99 11/28/18 00:40 88 18 106/79 100 11/28/18 00:35 76 18 107/72 100 11/28/18 00:30 88 18 107/65 97 11/28/18 00:27 36.4 C L 86 18 111/77 99 11/27/18 22:37 93 H 18 119/85 98 11/27/18 21:02 71 18 124/80 99 11/27/18 20:06 91 H 20 130/81 96 11/27/18 19:01 36.6 C 102 H 18 121/78 97 Pain Intensity Abdomen: Pain Intensity: 3 Notes Mental Status: alert / awake / arousable Patient Amnestic to Procedure: Yes Nausea / Vomiting: adequately controlled Pain: adequately controlled Airway Patency, RR, SpO2: stable & adequate BP & HR: stable & adequate Hydration State: stable & adequate Anesthetic Complications: no major complications apparent and Pt Satisfied with anesthetic care
[2018-11-28] MEDS ORDERED: PROMETHAZINE HCL 12.5 MG in SODIUM CHLORIDE 0.9% 50 ML IV PRN (01:27)
[2018-11-28] MEDS ORDERED: PROMETHAZINE HCL 25 MG in SODIUM CHLORIDE 0.9% 50 ML IV PRN (01:27)
[2018-11-28] MEDS ORDERED: ONDANSETRON INJ 2 MG/ML 2 ML VIAL IV PRN (01:27)
[2018-11-28] MEDS ORDERED: OXYCODONE/ACETAMINOPHEN 5mg/325mg TAB PO PRN (01:27)
[2018-11-28] MEDS ORDERED: MoRPHine SULFATE 4 MG/ML 1 ML CARP\\VIAL IV PRN (01:27)
--- NOTE | 2018-11-28 01:59 | Operative Report ---
DATE OF OPERATION: 11/28/2018 NAME OF OPERATION: Laparoscopic appendectomy. PREOPERATIVE DIAGNOSIS: Acute appendicitis. POSTOPERATIVE DIAGNOSIS: Acute appendicitis. STAFF SURGEON: Darrel Fall MD ANESTHESIA: General. DESCRIPTION OF PROCEDURE: The patient was brought in the Operating Room and placed on the Operating Room table in supine position. His abdomen was prepped and draped in the usual fashion. Boston catheter was placed. Pneumatic stockings were placed. Orogastric tube was placed. A 0.5% plain Marcaine was used to anesthetize all incisions. Incision was made above the umbilicus, carrying dissection down to the fascia, placing a Veress needle producing a pneumoperitoneum, placing an 11 mm port and under visualization, a 5 mm port was placed suprapubically and a 12 mm port placed in left lower quadrant. The appendix identified. It was thickened and inflamed. There was no abscess. The base of the appendix was transected using Endo-GONZALO stapler and then the mesoappendix transected on 2 more loads of the brown Endo-GONZALO. The appendix was placed in an Endobag and removed through the 12 mm site. After appropriate irrigation and hemostasis, all ports were removed. The 12 mm site and 11 mm site closed using 0 Vicryl for the fascia and then the skin reapproximated using subcuticular 4-0 Monocryl. Steri-Strips were used in the left lower quadrant. Dermabond for the periumbilical and suprapubic area. The patient was transferred to Recovery Room in a stable condition. I attest to the content of the Intraoperative Record and any orders documented therein. Any exception s are noted below.
[2018-11-28 02:01] LABS: Magnesium 1.9 mg/dl (1.8-2.4)
[2018-11-28] MEDS: SODIUM CHLORIDE 0.9% 1000ML 1,000 ML IV SCH ×3 (02:22→23:15)
--- NOTE | 2018-11-28 02:35 | Hospitalist Consultation ---
Date of Consultation November 28, 2018 Assessment & Plan (1) Acute appendicitis: Final Assessment and Recommendations as follows : Acute appendicitis status post appendectomy Patient complaining of postop abdominal discomfort Alcoholic cirrhosis No overt decompensation Patient on the dry side given hemoconcentration on admission blood work past alcohol abuse Patient claims last drink was months ago. Chronic thrombocytopenia secondary to alcoholic cirrhosis Hyperglycemia rule out DM Analgesia as per postop surgery orders Agree with IV hydration for now Hold parameters for sedation and confusion for home neuropsychotropic medications. Check hemoglobin A1c DVT prophylaxis. Heparin subcu as per postop surgery orders (Caution with bleeding given history of chronic thrombocytopenia.) Thank you very much for this consultation. Dr. Joyner will follow patient's progress. History of Present Illness Reason for Consultation: Medical management Requesting Physician: Dr. Fall Attending Physician: Darrel Fall MD, FACS History of Present Illness PCP : Dr. Luevano Medical history significant for cirrhosis, chronic pancytopenia, past alcohol abuse, and osteoporosis. Recent confinement February 2018 for acute gastroenteritis, alcohol abuse. Last drink was months ago as per patient. One day history of generalized abdominal pain with nausea. Good bowel movement. CT abdomen pelvis showed uncomplicated appendicitis. Patient underwent laparoscopic appendectomy last night. Patient currently in hospital room complaining of postop abdominal pain. Medical History as above Surgical History : Appendectomy, cholecystectomy, hip fracture surgery Family History : Alcoholism, high blood pressure Personal/Social history : Non-smoker, past alcohol abuse, disabled Allergies Allergy/AdvReac Type Severity Reaction Status Date / Time Sulfa (Sulfonamide Allergy Intermediate swells Verified 11/27/18 19:57 Antibiotics) up/hives hydrocodone Allergy Unknown rash Verified 11/27/18 19:57 Home Medications Home Medications Medication Instructions Recorded Confirmed Type citalopram [Celexa] 20 mg PO DAILY 11/27/18 11/27/18 History dicyclomine 10 mg PO BID 11/27/18 11/27/18 History doxepin 50 mg PO HS PRN 11/27/18 11/27/18 History gabapentin [Neurontin] 100 mg PO TID 11/27/18 11/27/18 History lorazepam [Ativan] 2 mg PO TID 11/27/18 11/27/18 History mirtazapine [Remeron] 15 mg PO DAILY 11/27/18 11/27/18 History multivitamin 1 tab PO DAILY 11/27/18 11/27/18 History omeprazole 40 mg PO DAILY 11/27/18 11/27/18 History ranitidine HCl [Zantac] 150 mg PO DAILY PRN 11/27/18 11/27/18 History Patient History Medical History Alcoholism Chronic GERD Chronic pain Femur fracture bilateral Surgical History History of laparoscopic cholecystectomy Social History Current Living Situation: Parent Other Information That Helps Us Care for You: No Feels Safe at Home: Yes Safety Concerns: Feels Safe At This Time Smoking Status: Never smoker Do You Dip or Chew Tobacco: No Second Hand Exposure: No Tobacco Cessation Education Requested by Patient: No Hx Alcohol Use: Yes (7 years sober.) Hx Substance Use: No Beliefs That Will Affect Care: None Preferred Language: Latvian Communication Ability: Effective Cfd Engineer Required: No Review of Systems As per HPI, all 10 systems reviewed, all other ROS negative Physical Exam 2 Vital Signs (Past 24 Hours): Last Vital Signs Temp 36.3 C L 11/28/18 02:04 Pulse 95 H 11/28/18 02:04 Resp 17 11/28/18 02:04 BP 115/80 11/28/18 02:04 Pulse Ox 95 11/28/18 02:04 Physical Exam: GENERAL: Slightly uncomfortable, no respiratory distress SKIN: Pallor , warm HEENT: Pale palpebral conjunctivae, no ptosis, dry buccal mucosa NECK : Supple, no tenderness CHEST : CTA, no tenderness HEART : RRR, no obvious murmurs ABDOMEN: Dressing over anterior abdomen, some distention, no overt tenderness EXTREMITIES : No LE swelling/tenderness, no other conspicuous deformities noted NEUROLOGIC : Coherent, no facial asymmetry, no other gross focality Results & Data Laboratory Results Laboratory Results WBC 9.08 K/uL (4.8-10.8) 11/27/18 20:05 RBC 4.79 M/uL (4.7-6.1) 11/27/18 20:05 Hgb 14.2 g/dL (14.0-18.0) 11/27/18 20:05 Hct 42.3 % (42-52) 11/27/18 20:05 MCV 88.3 fL (80-100) 11/27/18 20:05 MCH 29.6 pg (25-34) 11/27/18 20:05 MCHC 33.6 g/dL (32-36) 11/27/18 20:05 RDW Std Deviation 40.2 fL (36.4-46.3) 11/27/18 20:05 RDW Coeff of Carlos 12.5 % (11.5-14.5) 11/27/18 20:05 Plt Count 120 K/uL (130-400) L 11/27/18 20:05 MPV 11.2 fL (7.4-10.4) H 11/27/18 20:05 Immature Gran % (Auto) 0.2 % 11/27/18 20:05 Neut % (Auto) 82.1 % 11/27/18 20:05 Lymph % (Auto) 9.1 % 11/27/18 20:05 [place] % (Auto) 7.7 % 11/27/18 20:05 Eos % (Auto) 0.7 % 11/27/18 20:05 Baso % (Auto) 0.2 % 11/27/18 20:05 Immature Gran # (Auto) 0.02 K/uL (0.00-0.02) 11/27/18 20:05 Neut # (Auto) 7.45 K/uL (1.4-6.5) H 11/27/18 20:05 Lymph # (Auto) 0.83 K/uL (1.2-3.4) L 11/27/18 20:05 [place] # (Auto) 0.70 K/uL (0.11-0.59) H 11/27/18 20:05 Eos # (Auto) 0.06 K/uL (0-0.5) 11/27/18 20:05 Baso # (Auto) 0.02 K/uL (0-0.2) 11/27/18 20:05 Sodium 137 mmol/L (136-145) 11/27/18 20:05 Potassium 3.7 mmol/L (3.5-5.1) 11/27/18 20:05 Chloride 102 mmol/L (98-107) 11/27/18 20:05 Carbon Dioxide 29 mmol/L (21-32) 11/27/18 20:05 Anion Gap 7.0 (3-11) 11/27/18 20:05 BUN 4 mg/dl (7-18) L 11/27/18 20:05 Creatinine 1.01 mg/dl (0.6-1.4) 11/27/18 20:05 Est Cr Clr Drug Dosing 82.7 ml/min 11/27/18 20:05 Est GFR ( Amer) 101.5 11/27/18 20:05 Est GFR (Non-Af Amer) 87.5 11/27/18 20:05 BUN/Creatinine Ratio 4.0 (10-20) L 11/27/18 20:05 Glucose 113 mg/dl (70-99) H 11/27/18 20:05 Calcium 9.0 mg/dl (8.5-10.1) 11/27/18 20:05 Magnesium 1.9 mg/dl (1.8-2.4) 11/27/18 20:05 Total Bilirubin 0.6 mg/dl (0.2-1) 11/27/18 20:05 Direct Bilirubin 0.1 mg/dl (0-0.2) 11/27/18 20:05 AST 18 U/L (15-37) 11/27/18 20:05 ALT 30 U/L (12-78) 11/27/18 20:05 Alkaline Phosphatase 67 U/L (45-117) 11/27/18 20:05 Total Protein 8.2 gm/dl (6.4-8.2) 11/27/18 20:05 Albumin 4.4 gm/dl (3.4-5.0) 11/27/18 20:05 Lipase 98 U/L (73-393) 11/27/18 20:05 _ (1) Acute appendicitis Acute appendicitis type: unspecified acute appendicitis type Appendicitis abscess presence: Appendicitis gangrene presence: Appendicitis perforation presence: Qualified Code(s): K35.80 - Unspecified acute appendicitis
[2018-11-28] MEDS ORDERED: MAGNESIUM SULFATE / D5W 1 GM/100 ML BAG IV ONE (05:20)
[2018-11-28] MEDS ORDERED: POTASSIUM CHLORIDE 20 MEQ TABCR PO STA (05:20)
[2018-11-28 05:55] LABS: INR 1.1 (0.9-1.1); Prothrombin Time 11.4 Seconds (9.0-12.0)
[2018-11-28] MEDS ORDERED: ACETAMINOPHEN 500 MG TAB PO PRN (06:08)
[2018-11-28 06:12] LABS: Calcium 8.6 mg/dl (8.5-10.1); Creatinine Clr Calc Pharmacy 68.4 ml/min; Est GFR (African American) 81.6; Est GFR (Non-African American) 70.4; Potassium 3.8 mmol/L (3.5-5.1)
--- NOTE | 2018-11-28 06:19 | Progress Note ---
Date of Service November 28, 2018 Assessment & Plan (1) Acute appendicitis: Cont IV atbx, adv diet/ activity add Acetaminophen po probable d/c 1-2 days Acute appendicitis type: unspecified acute appendicitis type Appendicitis abscess presence: Appendicitis gangrene presence: Appendicitis perforation presence: Qualified Code(s): K35.80 - Unspecified acute appendicitis Subjective awake- some pain- says the same Physical Exam 2 Vital Signs (Past 24 Hours): Last Vital Signs Temp 36.6 C 11/28/18 04:00 Pulse 110 H 11/28/18 04:00 Resp 18 11/28/18 04:00 BP 114/69 11/28/18 04:00 Pulse Ox 100 11/28/18 04:00 mild abd distention- pt does not appear ill
[2018-11-28 06:26] LABS: Estimated Average Glucose 111 mg/dl
[2018-11-28 07:23] LABS: Basophils # (auto) 0.01 K/uL (0-0.2); Basophils % (auto) 0.1 %; Hematocrit (blood only) 40.1 % (42-52); Hemoglobin 13.4 g/dL (14.0-18.0); Immature Granulocytes # (auto) 0.01 K/uL (0.00-0.02); Immature Granulocytes % (auto) 0.1 %; Lymphocytes # (auto) 0.25 K/uL (1.2-3.4); Lymphocytes % (auto) 3.4 %; Mean Corpuscular Hgb Conc 33.4 g/dL (32-36); Mean Corpuscular Volume 89.3 fL (80-100); Mean Platelet Volume 11.2 fL (7.4-10.4); Monocytes # (auto) 0.59 K/uL (0.11-0.59); Monocytes % (auto) 7.9 %; Neutrophils # (auto) 6.57 K/uL (1.4-6.5); Neutrophils % (auto) 88.5 %; Platelet Count 115 K/uL (130-400); RDW Coefficient of Variation 12.6 % (11.5-14.5); RDW Standard Deviation 40.2 fL (36.4-46.3); Red Blood Count 4.49 M/uL (4.7-6.1); White Blood Count 7.43 K/uL (4.8-10.8)
[2018-11-28] MEDS: OXYCODONE/ACETAMINOPHEN 5mg/325mg TAB PO PRN ×2 (08:13→20:36)
[2018-11-28] MEDS: HEPARIN SOD 5,000 UNIT/0.5 ML VIAL SQ SCH ×2 (08:17→20:20)
[2018-11-28] MEDS: PANTOprazole 40 MG TAB PO SCH (08:18)
[2018-11-28] MEDS: GABAPENTIN 100 MG CAP PO SCH ×3 (08:18→20:21)
[2018-11-28] MEDS: DOCUSATE SODIUM/SENNA 50/8.6MG TAB PO SCH ×2 (08:18→20:21)
[2018-11-28] MEDS: CITALOPRAM 20 MG TAB PO SCH (08:18)
[2018-11-28] MEDS ORDERED: PHENAZOPYRIDINE HCL 200 MG TAB PO STA (08:35)
--- NOTE | 2018-11-28 08:52 | Hospitalist Progress Note ---
Date of Service November 28, 2018 Assessment & Plan (1) Acute appendicitis: POD Day #0 Laparascopic Appendectomy secondary to Appenditis with out perforation Dr. Fall EBL 10ml -pain/wound control per surgery -activity as tolerated -incentive spirometry -will increase fluid rate to 125cc/hr given patient on dry side with mild tachycardia -continue IV cefoxitin per surgery -Heparin 5,000units SQ Q12hr for VTE prophylaxis -PPI for GI prophylaxis (2) Acute blood loss anemia: -H/H stable at 13.4 and 40.1 -monitor H/H (3) Cirrhosis of liver: -no overt decompensation -patient with chronic thrombocytopenia -no s/sx of encephalopathy (4) Thrombocytopenia: -plt count stable at 115, monitor with heparin use (5) Hyperglycemia: -hyperglycemia on admission, FBS 155 this a.m. -check Accuchecks AC/HS -A1C 5.5, hypergylcemia likely in setting of acute infection -monitor BGM if consistently > 150 will order novolog coverage per protocol (6) Dysuria: -patient complains of dysuria w/o hematuria or other overt signs of UTI, notes its from having cath in place -will check UA C and S, encourage fluids, increase IVF to 125cc/hr -pyridium 200mg po x 1 (7) History of ETOH abuse: -denies recent ETOH use, states its been, "years." (8) Chronic pain: -continue gabapentin and pain control per surgery (9) Depression: -mood stable, flat affect continue celexa (10) Anxiety: -continue lorazepam (11) DVT prophylaxis: -heparin SQ Disposition: D/C to home 1-2 days per surgery Follow Up: PCP Dr. Luevano upon discharge Patient was seen in collaboration with Dr. Joyner, please see addendum Supervising Physician Co-Signing Physician Notes Attending addendum: Patient seen and examined, care coordinated with Paulette Max PA-C 48-year-old male status post laparoscopic appendectomy Recovering well postoperatively Tolerating diet Complaint of dysuria earlier today Symptom improved with as needed Pyridium Order for UA and culture IV fluids for evidence of dehydration, patient reports of poor p.o. intake, no nausea vomiting No bowel movement postop Offered bowel regimen: MiraLAX and Colace, which patient refused (History of uncontrolled diarrhea in past) Patient counseled to request for as needed MiraLAX or Colace if no bowel movement next 24-48 hours Annie Joyner MD Subjective Patient was seen and examined in room 358-1. F/U POD #0 Lap Appendectomy secondary to acute appendicitis. Complains of 8/10 RLQ abdomen discomfort, muscle soreness. Improved from initial presentation was 10/10. Further complains of dsyuria secondary to catheter that had been in place per patient. Denies f/c/s, dizziness, lightheaded, chest pain, sob, n/v. Appetite diminished. States he recalls coming into ED and next thing he remembers is waking up post operatively. He denies any current tobacco use or ETOH use. States he hasn't drank in several years. Physical Exam 2 Vital Signs (Past 24 Hours): Last Vital Signs Temp 36.9 C 11/28/18 08:01 Pulse 108 H 11/28/18 08:01 Resp 12 11/28/18 08:01 BP 104/68 11/28/18 08:01 Pulse Ox 97 11/28/18 08:01 Physical Exam: Gen: Thin, Male, sitting up in bed, NAD, A&O x3, flat affect HEENT: Normocephalic, atraumatic, conjunctivae moist, sclerae anicteric, mucous membranes dry. Lung: Clear to Auscultation bilaterally, no wheezes/rales/rhonchi Heart: Tachycardic rate 104 apically, regular rhythm, no murmurs, rubs, or gallops Abdomen: Soft, +tender RLQ, mild distention, +lap incision CDI, +BS x 4 but hypoactive Extremities: No edema Skin: Warm, no rash, mild turgor. Results & Data Laboratory Results Short CBC 11/27/18 11/28/18 Range/Units 20:05 05:28 WBC 9.08 7.43 (4.8-10.8) K/uL Hgb 14.2 13.4 L (14.0-18.0) g/dL Hct 42.3 40.1 L (42-52) % Plt Count 120 L 115 L (130-400) K/uL BMP 11/27/18 11/28/18 20:05 05:28 Sodium 137 139 Potassium 3.7 3.8 Chloride 102 103 Carbon Dioxide 29 30 BUN 4 L 5 L Creatinine 1.01 1.21 Glucose 113 H 155 H Calcium 9.0 8.6 Liver Function 11/27/18 Range/Units 20:05 Total Bilirubin 0.6 (0.2-1) mg/dl Direct Bilirubin 0.1 (0-0.2) mg/dl AST 18 (15-37) U/L ALT 30 (12-78) U/L Alkaline Phosphatase 67 (45-117) U/L Albumin 4.4 (3.4-5.0) gm/dl Medications Administered Current Inpatient Medications Acetaminophen (Tylenol) 1,000 mg PO Q6H PRN PRN Reason: Pain Stop: 12/28/18 06:07 Citalopram Hydrobromide (Celexa) 20 mg PO DAILY ONEL Stop: 12/28/18 08:59 Last Admin: 11/28/18 08:18 Dose: 20 mg Gabapentin (Neurontin) 100 mg PO TID ONEL Stop: 12/28/18 08:59 Last Admin: 11/28/18 08:18 Dose: 100 mg Heparin Sodium (Porcine) (Heparin Sodium (Porcine)) 5,000 units SQ Q12 ONEL Stop: 12/28/18 08:59 Last Admin: 11/28/18 08:17 Dose: 5,000 units Lorazepam (Ativan) 0.5 mg in 1 mls @ 1 mls/min IV Q6 PRN PRN Reason: Anxiety Stop: 12/28/18 00:29 Lorazepam (Ativan) 1 mg in 2 mls @ 2 mls/min IV Q6HWA PRN PRN Reason: Anxiety Stop: 12/28/18 00:29 Promethazine HCl 12.5 mg/ (Sodium Chloride) 50.5 mls @ 204 mls/hr IV Q6H PRN PRN Reason: Nausea And Vomiting Stop: 12/28/18 01:26 Cefoxitin Sodium 1,000 mg/ (Dextrose) 60 mls @ 100 mls/hr IV Q6H ONEL Stop: 12/08/18 03:59 Last Infusion: 11/28/18 03:53 Dose: Infused Promethazine HCl 25 mg/ Sodium (Chloride) 51 mls @ 204 mls/hr IV Q6H PRN PRN Reason: Nausea And Vomiting Stop: 12/28/18 01:26 Sodium Chloride (Nss 1000ml) 1,000 mls @ 125 mls/hr IV .Q8H ONEL Stop: 12/28/18 01:26 Last Infusion: 11/28/18 08:34 Dose: 125 mls/hr Mirtazapine (Remeron) 15 mg PO HS ONEL Stop: 12/28/18 20:59 Morphine Sulfate (Morphine Sulfate) 4 mg IV 3XQ2H PRN PRN Reason: Pain Stop: 12/12/18 01:26 Morphine Sulfate (Morphine Sulfate) 2 mg IV 4XDQ3H PRN PRN Reason: Pain Stop: 12/12/18 01:26 Last Admin: 11/28/18 03:29 Dose: 2 mg Ondansetron HCl (Zofran) 4 mg IV 4XDQ4H PRN PRN Reason: Nausea Stop: 12/28/18 01:26 Last Admin: 11/28/18 02:22 Dose: 4 mg Oxycodone/Acetaminophen (Percocet 5mg/325mg) 1 tab PO Q4H PRN PRN Reason: Pain Stop: 12/12/18 01:26 Oxycodone/Acetaminophen (Percocet 5mg/325mg) 2 tab PO Q4H PRN PRN Reason: Pain Stop: 12/12/18 01:26 Last Admin: 11/28/18 08:13 Dose: 2 tab Pantoprazole Sodium (Protonix) 40 mg PO DAILY ONEL Stop: 12/28/18 08:59 Last Admin: 11/28/18 08:18 Dose: 40 mg Senna/Docusate Sodium (Senokot S) 1 tab PO BID ONEL Stop: 12/28/18 08:59 Last Admin: 11/28/18 08:18 Dose: 1 tab _ (1) Chronic pain Chronic pain type: chronic pain syndrome Qualified Code(s): G89.4 - Chronic pain syndrome (2) Depression Depression Type: unspecified Qualified Code(s): F32.9 - Major depressive disorder, single episode, unspecified (3) Cirrhosis of liver Ascites presence: without ascites Hepatic cirrhosis type: alcoholic cirrhosis Qualified Code(s): K70.30 - Alcoholic cirrhosis of liver without ascites (4) Acute appendicitis Acute appendicitis type: unspecified acute appendicitis type Appendicitis abscess presence: Appendicitis gangrene presence: Appendicitis perforation presence: Qualified Code(s): K35.80 - Unspecified acute appendicitis
[2018-11-28 11:43] LABS: Appearance Urine Clear (Clear); Bilirubin Urine Negative (Negative); Color Urine Yellow; Glucose Urine UA Negative (Negative); Ketones Urine Negative (Negative); Leukocyte Esterase Urine Negative (Negative); Nitrite Urine Negative (Negative); Protein Urine Negative (Negative); Specific Gravity Urine 1.014 (1.000-1.030); Urobilinogen Urine Negative (Negative)
[2018-11-28] MEDS: MoRPHine SULFATE 4 MG/ML 1 ML CARP\\VIAL IV PRN ×2 (12:08→15:35)
[2018-11-28] MEDS ORDERED: POLYETHYLENE (MIRALAX) 17 GM PACK PO PRN (20:20)
[2018-11-28] MEDS: MIRTAZAPINE TAB 15 MG TAB PO SCH (20:21)
[2018-11-29] MEDS: SODIUM CHLORIDE 0.9% 1000ML 1,000 ML IV SCH (06:08)
--- NOTE | 2018-11-29 06:51 | Progress Note ---
Date of Service November 29, 2018 Assessment & Plan (1) Acute appendicitis: cont supporyive care- possible mild ileus cont IV atbx, sen S, encourage walking in fields possible d/c 11/30 Acute appendicitis type: unspecified acute appendicitis type Appendicitis abscess presence: Appendicitis gangrene presence: Appendicitis perforation presence: Qualified Code(s): K35.80 - Unspecified acute appendicitis Subjective vitals stable- walking in room min flatus, no bm- pt concerned about distention Physical Exam 2 Vital Signs (Past 24 Hours): Last Vital Signs Temp 36.3 C L 11/28/18 23:27 Pulse 84 11/28/18 23:27 Resp 16 11/28/18 23:27 BP 103/63 11/28/18 23:27 Pulse Ox 94 11/28/18 23:27 abd- mild distention , has active bs
[2018-11-29] MEDS ORDERED: TRAMADOL HCL 50 MG TABLET PO PRN (06:55)
[2018-11-29 07:22] LABS: Hematocrit (blood only) 36.3 % (42-52); Hemoglobin 11.8 g/dL (14.0-18.0); Mean Corpuscular Hgb Conc 32.5 g/dL (32-36); Mean Corpuscular Volume 90.3 fL (80-100); RDW Coefficient of Variation 12.9 % (11.5-14.5); RDW Standard Deviation 42.6 fL (36.4-46.3); Red Blood Count 4.02 M/uL (4.7-6.1); White Blood Count 6.36 K/uL (4.8-10.8)
[2018-11-29] MEDS: TRAMADOL HCL 50 MG TABLET PO PRN ×3 (07:30→21:14)
[2018-11-29 07:57] LABS: BUN Creatinine Ratio 7.5 (10-20); Creatinine Clr Calc Pharmacy 83.6 ml/min; Est GFR (African American) 103.9; Est GFR (Non-African American) 89.7; Potassium 3.8 mmol/L (3.5-5.1)
[2018-11-29 08:04] LABS: Mean Platelet Volume 10.4 fL (7.4-10.4); Platelet Count 92 K/uL (130-400)
--- NOTE | 2018-11-29 08:48 | Hospitalist Progress Note ---
Date of Service November 29, 2018 Assessment & Plan (1) Acute appendicitis: POD Day #1 Lap Appendectomy secondary to Appendicitis without perforation Dr. Fall s/p laparoscopic appendectomy by Dr Fall on 11/28/2018 EBL 10ml -pain/wound control per surgery -activity as tolerated. Encouraged ambulation -incentive spirometry -continue IV cefoxitin per surgery -discontinue IV fluids now that patient is tolerating PO -given Senokot S last night and this morning for bowel regimen -will discontinue SQ Heparin since plt have decreased from 115 to 90, there is new bruising on abd. Add SCDs -PPI for GI prophylaxis (2) Acute blood loss anemia: -H/H stable at 11.8 (13.4 yesterday) -monitor H/H (3) Cirrhosis of liver: -no overt decompensation -patient with chronic thrombocytopenia -no s/sx of encephalopathy (4) Thrombocytopenia: -plt count stable at 115, monitor with heparin use (5) Hyperglycemia: -hyperglycemia on admission, FBS 155 this a.m. -check Accuchecks AC/HS -A1C 5.5, hypergylcemia likely in setting of acute infection -monitor BGM if consistently > 150 will order novolog coverage per protocol (6) Dysuria: -dysuria improved. UA without evidence of infection -pyridium 200mg po x 1 (7) History of ETOH abuse: -denies recent ETOH use, states its been, "years." (8) Chronic pain: -continue gabapentin and pain control per surgery (9) Depression: -mood stable, flat affect continue celexa (10) Anxiety: -continue lorazepam (11) DVT prophylaxis: -SCDs/early ambulation Disposition: D/C to home likely tomorrow, per surgery Follow Up: PCP Dr. Luevano upon discharge Patient was seen in collaboration with Dr. Joyner, please see addendum Supervising Physician Co-Signing Physician Notes ATTENDING ADDENDUM 48 YO male s/p appendectomy on 11/28/2018 recovering well post op diet advanced , tolerating well concern for illeus post op ordered for bowel regimen by surgery increase activity as tolerated medically stable Annie Joyner MD Subjective Patient was seen and examined in room 358-1. F/U POD #1 Lap Appendectomy secondary to acute appendicitis. Experiencing surgical site tenderness and distention in LLQ. Tolerating breakfast and feels like he will have a bowel movement soon. Encouraged ambulation. Denies lightheadedness, CP, SOB or wheezing. Physical Exam 2 Vital Signs (Past 24 Hours): Last Vital Signs Temp 36.5 C 11/29/18 07:45 Pulse 86 11/29/18 07:45 Resp 18 11/29/18 07:45 BP 125/81 11/29/18 07:45 Pulse Ox 96 11/29/18 07:45 Physical Exam: General Appearance: WD/WN, no apparent distress, eating breakfast Head: normocephalic, atraumatic Eyes: normal inspection, PERRL, EOMI ENT: hearing grossly normal, pharynx normal (moist mucous membranes) Neck: supple, no JVD, no adenopathy Respiratory/Chest: lungs clear to auscultation. No wheezes, rales or rhonci. No respiratory distress or accessory muscle use Cardiovascular: regular rate, rhythm, no murmur, normal peripheral pulses Abdomen/GI: normal bowel sounds, soft but distended, mildly tender, ecchymosis noted Extremities/Musculoskelatal: normal inspection, no calf tenderness, normal capillary refill, no pedal edema Neurologic/Psych: alert, normal mood/affect, oriented x 3 Skin: normal color, warm/dry Results & Data Laboratory Results Short CBC 11/29/18 Range/Units 07:09 WBC 6.36 (4.8-10.8) K/uL Hgb 11.8 L (14.0-18.0) g/dL Hct 36.3 L (42-52) % Plt Count 92 L (130-400) K/uL BMP 11/29/18 07:09 Sodium 141 Potassium 3.8 Chloride 110 H Carbon Dioxide 27 BUN 7 Creatinine 0.99 Glucose 102 H Calcium 8.0 L Urine 11/28/18 Range/Units 09:50 Urine Color Yellow Urine Appearance Clear (Clear) Urine pH 8.0 H (4.5-7.5) Ur Specific [place] 1.014 (1.000-1.030) Urine Protein Negative (Negative) Urine Glucose (UA) Negative (Negative) _ (1) Chronic pain Chronic pain type: chronic pain syndrome Qualified Code(s): G89.4 - Chronic pain syndrome (2) Depression Active/Remission status: Depression Type: unspecified Major depression episode severity: Major depression recurrence: Psychotic features: Trimester: Qualified Code(s): F32.9 - Major depressive disorder, single episode, unspecified (3) Cirrhosis of liver Ascites presence: without ascites Hepatic cirrhosis type: alcoholic cirrhosis Qualified Code(s): K70.30 - Alcoholic cirrhosis of liver without ascites (4) Acute appendicitis Acute appendicitis type: unspecified acute appendicitis type Appendicitis abscess presence: Appendicitis gangrene presence: Appendicitis perforation presence: Qualified Code(s): K35.80 - Unspecified acute appendicitis
[2018-11-29 08:49] LABS: Estimated Average Glucose 111 mg/dl
[2018-11-29] MEDS: CITALOPRAM 20 MG TAB PO SCH (09:24)
[2018-11-29] MEDS: GABAPENTIN 100 MG CAP PO SCH ×3 (09:24→21:06)
[2018-11-29] MEDS: PANTOprazole 40 MG TAB PO SCH (09:24)
[2018-11-29] MEDS: DOCUSATE SODIUM/SENNA 50/8.6MG TAB PO SCH ×2 (09:25→21:06)
[2018-11-29] MEDS: HEPARIN SOD 5,000 UNIT/0.5 ML VIAL SQ SCH (09:57)
[2018-11-29] MEDS: MIRTAZAPINE TAB 15 MG TAB PO SCH (21:06)
--- NOTE | 2018-11-30 06:44 | Progress Note ---
Date of Service November 30, 2018 Assessment & Plan (1) Acute appendicitis: bowels moving- will d/c home office 1-2 weeks Acute appendicitis type: unspecified acute appendicitis type Appendicitis abscess presence: Appendicitis gangrene presence: Appendicitis perforation presence: Qualified Code(s): K35.80 - Unspecified acute appendicitis Subjective positive bowel movements Physical Exam 2 Vital Signs (Past 24 Hours): Last Vital Signs Temp 36.9 C 11/29/18 23:04 Pulse 89 11/29/18 23:04 Resp 15 11/29/18 23:04 BP 122/76 11/29/18 23:04 Pulse Ox 96 11/29/18 23:04 good bowel sounds
[2018-11-30 07:39] LABS: BUN Creatinine Ratio 7.9 (10-20); Calcium 8.2 mg/dl (8.5-10.1); Creatinine Clr Calc Pharmacy 82.8 ml/min; Est GFR (African American) 102.7; Est GFR (Non-African American) 88.6; Potassium 3.2 mmol/L (3.5-5.1)
[2018-11-30] MEDS ORDERED: POLYETHYLENE (MIRALAX) 17 GM PACK PO SCH (08:00)
[2018-11-30] MEDS: CITALOPRAM 20 MG TAB PO SCH (08:13)
[2018-11-30] MEDS: GABAPENTIN 100 MG CAP PO SCH (08:13)
[2018-11-30] MEDS: PANTOprazole 40 MG TAB PO SCH (08:13)
[2018-11-30] MEDS: TRAMADOL HCL 50 MG TABLET PO PRN (08:16)
[2018-11-30] MEDS ORDERED: POTASSIUM CHLORIDE 20 MEQ TABCR PO STA (09:19)
--- NOTE | 2018-11-30 09:30 | Hospitalist Progress Note ---
Date of Service November 30, 2018 Assessment & Plan (1) Acute appendicitis: POD Day #2 Lap Appendectomy secondary to Appendicitis without perforation Dr. Fall s/p laparoscopic appendectomy by Dr Fall on 11/28/2018 EBL 10ml -pain/wound control per surgery -activity as tolerated. Encouraged ambulation -incentive spirometry -PPI for GI prophylaxis - +BM, patient will be discharged later today (2) Acute blood loss anemia: -H/H stable at 11.8 (13.4 pre-op) (3) Hypokalemia: -K 3.2 -KCL 40meq x 1 ordered (4) Cirrhosis of liver: -no overt decompensation -patient with chronic thrombocytopenia -no s/sx of encephalopathy (5) Thrombocytopenia: -plt count stable at 115, monitor with heparin use (6) Hyperglycemia: -hyperglycemia on admission, FBS 155 this a.m. -A1C 5.5, hypergylcemia likely in setting of acute infection -FBS 114 this morning, will discontinue further accuchecks (7) Dysuria: -dysuria improved. UA without evidence of infection -pyridium 200mg po x 1 (8) History of ETOH abuse: -denies recent ETOH use, states its been, "years." (9) Chronic pain: -continue gabapentin and pain control per surgery (10) Depression: -mood stable, flat affect continue celexa (11) Anxiety: -continue lorazepam (12) DVT prophylaxis: -SCDs/early ambulation Disposition: D/C to home today Follow Up: PCP Dr. Luevano upon discharge Patient was seen in collaboration with Dr. Joyner, please see addendum Supervising Physician Co-Signing Physician Notes Attending addendum: 48-year-old male status post appendectomy, recovering well., Having normal bowel movement, tolerating diet well, stable to be discharged home . Annie Joyner MD Subjective Patient was seen and examined in room 358-1. F/U POD #2 Lap Appendectomy secondary to acute appendicitis. Feels well this morning. Had BM. Looking forward to going home today. Appetite is good. Still experiencing surgical site tenderness and distention. Denies N/V and tolerating diet. Passing Flatus. Denies fever/chills, chest pain, sob. Has been ambulating to and from bathroom and around unit. Physical Exam 2 Vital Signs (Past 24 Hours): Last Vital Signs Temp 36.3 C L 11/30/18 07:59 Pulse 86 11/30/18 07:59 Resp 18 11/30/18 07:59 BP 124/58 L 11/30/18 07:59 Pulse Ox 96 11/30/18 07:59 Physical Exam: Gen: Thin, tall male, sitting up in bed, flat affected but makes good eye contact, NAD, A&O x3 HEENT: Normocephalic, atraumatic, conjunctivae moist, sclerae anicteric, mucous membranes moist. Lung: Clear to Auscultation bilaterally, no wheezes/rales/rhonchi Heart: Regular rate, regular rhythm, no murmurs, rubs, or gallops Abdomen: Soft, NT, minimal Distenstion, +ecchymosis around surgical site +BS x 4 Extremities: No edema Skin: Warm, no rash, negative turgor. Results & Data Laboratory Results Short CBC 11/27/18 11/28/18 11/29/18 Range/Units 20:05 05:28 07:09 Potassium 3.7 3.8 3.8 (3.5-5.1) mmol/L Creatinine 1.01 1.21 0.99 (0.6-1.4) mg/dl 11/30/18 Range/Units 06:42 Potassium 3.2 L D (3.5-5.1) mmol/L Creatinine 1.00 (0.6-1.4) mg/dl BMP 11/30/18 06:42 Sodium 139 Potassium 3.2 L D Chloride 107 Carbon Dioxide 29 BUN 8 Creatinine 1.00 Glucose 114 H Calcium 8.2 L _ (1) Chronic pain Chronic pain type: chronic pain syndrome Qualified Code(s): G89.4 - Chronic pain syndrome (2) Depression Active/Remission status: Depression Type: unspecified Major depression episode severity: Major depression recurrence: Psychotic features: Trimester: Qualified Code(s): F32.9 - Major depressive disorder, single episode, unspecified (3) Cirrhosis of liver Ascites presence: without ascites Hepatic cirrhosis type: alcoholic cirrhosis Qualified Code(s): K70.30 - Alcoholic cirrhosis of liver without ascites (4) Acute appendicitis Acute appendicitis type: unspecified acute appendicitis type Appendicitis abscess presence: Appendicitis gangrene presence: Appendicitis perforation presence: Qualified Code(s): K35.80 - Unspecified acute appendicitis
--- NOTE | 2018-12-03 06:39 | Discharge Summary ---
Date of Service December 03, 2018 Admission HPI Per Admitting Provider pt to ER with acute abd pain- mostly RLQ CT evidence of acute appendicitis Principal Diagnosis same Discharge Data Allergies Allergy/AdvReac Type Severity Reaction Status Date / Time Sulfa (Sulfonamide Allergy Intermediate swells Verified 11/27/18 19:57 Antibiotics) up/hives hydrocodone Allergy Unknown rash Verified 11/27/18 19:57 Consultations 11/27/18 22:16 ED Decision to Admit Stat 11/27/18 23:19 Consult Hospitalist Routine Procedures Performed Operation Date: 11/27/18 23:00 Actual Procedures p Laparoscopic Appendectomy(Not Applicable) - Darrel Fall MD, FACS Ordered Studies 11/27/18 20:09 CT abd pelvis IV con only Stat Hospital Course (1) Acute appendicitis: pt adm to hospital 11/27/18- taken to OR early am 11/28/18- underwent laparoscopic appendectomy- julio well some difficulty postop with bowel function- returne well- d/c home 11/30/18 Total Time Total Time Spent Total Time Spent (In Minutes): 30 Discharge Plan Discharge Items Patient Disposition: Home - Self-Care Reason For Visit: STOMACH PAIN Discharge Diagnosis: acute appendicitis Discharge Goals: Decrease discomfort, Improve disease control and Improve function Activity: As commented below Activity Comment: light activity for 3 weeks Lifting: No more than 25 pounds Bathing Comment: may shower Sexual Activity: When tolerated Exercise Comment: wait 3 weeks Driving/Machine Use: Resume 3 days after discharge Non-emergency contact: Primary Care Provider and Surgeon Call non-emergency contact if: your pain is not controlled, your temperature is above 101 and your wound has increased drainage Follow-up/Referrals: Jose Francisco Luevano MD [Primary Care Provider] - Diet: Regular Addtl Provider Instructions: SPECIAL CARE INSTRUCTIONS: * Cover incisions and change daily for comfort/drainage. May leave uncovered with dermabond and if dry Avoid constipation-- * May Use Senokot S and Milk of Magnesium twice daily as directed on the package * * May use ibuprofen for pain as tolerated. * Expect some swelling and bruising. Call your doctor if: * Temperature above 101 degrees * Pain not relieved by pain medicine ordered * There is increased drainage or redness from any incision * You have any unanswered questions or concerns [phone]. FOLLOW UP VISIT: If not already scheduled, please call the office for a follow-up visit. OFFICE PHONE NUMBER: Dr. Fall Office for 2 weeks- check up Prescriptions: New tramadol 50 mg tablet 50 - 100 mg PO Q6H Qty: 30 RF: 0 Continue multivitamin Tablet 1 tab PO DAILY RF: 0 doxepin 50 mg capsule 50 mg PO HS PRN (Reason: Sleep) RF: 0 omeprazole 40 mg capsule,delayed release(DR/EC) 40 mg PO DAILY RF: 0 citalopram [Celexa] 20 mg tablet 20 mg PO DAILY RF: 0 ranitidine HCl [Zantac] 150 mg tablet 150 mg PO DAILY PRN (Reason: Acid Reflux) RF: 0 mirtazapine [Remeron] 15 mg tablet 15 mg PO DAILY RF: 0 gabapentin [Neurontin] 100 mg capsule 100 mg PO TID RF: 0 lorazepam [Ativan] 1 mg tablet 2 mg PO TID RF: 0 dicyclomine 10 mg capsule 10 mg PO BID RF: 0 Stand-Alone Forms: Call Back Authorization, [facility] Discharge Orders: Discharge Order (Routine); Ordered 11/30/18 Ordered By: Darrel Fall Admission Data Admit Date/Time: 11/28/18 01:19 Attending Provider: Darrel Fall Admit Provider: Darrel Fall Primary Care Provider: Jose Francisco Luevano Other Providers: Darrel Fall ; Noris Edwards ; Luis Chamberlain ; Isma Castillo ; Jose Clark ; Ellen Heredia ; Benita Mcdonald ; Samantha Ayala ; Henrry Baxter S ; Darius Waterman ; Damien Barreto ; Edwar Angela ; Mahsa Barton S ; Annie Joyner ; Patrizia Jorgensen ; Ace Almanza ; Nick Mandel ; Liza Toth Brittany L. ; Nick Grossman Service: Surgical Services Other Interventions: Discharge Summary Assessment (RN) Last Done: 11/30/18 12:00 DC Date/Time DO NOT enter until pt leaves facility: 11/30/18 13:10
== END 2018-11-30 13:10 | disposition home or self-care (01) | DRG 342 ==
LOC: ED 18:56 → OR 22:50 → 3W 11-28 01:19